=== PATIENT | female | born 1990 | race Caucasian/White ===

== ENCOUNTER → 2019-07-01 11:28 | Outpatient (BNVA) | payer MEDICAID, SELFPAY | PROVIDERS: Family Provider Nurse Practitioner Family; PCP Nurse Practitioner Family; Visit Provider Psychiatry & Neurology Psychiatry | DX: F42.9 Obsessive-compulsive disorder, unspecified (principal) | CPT/HCPCS: 99213 ==

== ENCOUNTER 2019-08-17 08:08 | Emergency (ER) | payer SELFPAY ==
--- NOTE | 2019-08-17 08:19 | ED_ITS ---
HPI - Nausea/Vomiting/Diarrhea General: Chief complaint: Headache Stated complaint: N/V , H/A Time Seen by Provider: 08/17/19 08:10 Source: patient and family Mode of arrival: ambulatory Limitations: no limitations History of Present Illness: HPI Narrative: Patient is a 29-year-old female who presents to ED today along with her mother for complaints of abdominal pain, nausea, vomiting that began this morning. Patient has a longstanding history of cyclic vomiting syndrome with questionable hyperemesis cannabis syndrome. Mother is convinced that her symptoms were due to stress and anxiety related with a bad relationship. She states the relationship ended and patient seemed to have a few months of relief. When asked about current cannabis use patient tells me she is not using enough but failed to ever give me a definitive answer on her usage. Patient has not been running fevers. She has not had diarrhea. MD elicited complaint: nausea, vomiting and abdominal pain Pertinent past history: cyclical vomiting Onset (ago): hour(s) Associated nausea: Yes Associated abdominal pain: Yes Location of pain: Diffuse Radiation: diffuse Pain consistency: constant Quality: cramping Exacerbating factors: eating and vomiting Relieving factors: none Context: marijuana use Associated symtoms: Reports nausea; Denies chest pain, dysuria, fatigue, headache(s), palpitations or syncope Review of Systems Const: Denies: fever, chills, body aches, change in appetite, change in weight or fatigue ENMT: Denies: throat pain, enlarged tonsils or painful swallowing Card: Denies: chest pain, palpitations, irregular heart rhythm, edema, lightheadedness, syncope or pre-syncope Resp: Denies: shortness of breath, productive cough, coughing up blood or chest congestion GI: Reports: abdominal pain, nausea and vomiting; Denies: vomiting blood, diarrhea, constipation, change in bowel habits, painful bowel movements, change in stool character, blood in stool, black tarry stool, white/light colored stool or fatty stool : Denies: flank pain, difficulty urinating, painful urination, urinary frequency, urinary urgency or urinary hesitancy Musc: Denies: neck pain or back pain Skin/Breast: Denies: rash Neuro: Denies: headache, numbness in extremities, weakness in extremities or changes in sensation PFS ED PFSH: Social History (Updated 07/01/19 @ 11:42 by ROMI Ferreira Smoking and tobacco status: former smoker Quit status (tobacco): not considering quitting Second hand smoke exposure: No Smoking risk assessment/counseling performed?: No Physical Exam Const: COMMON NORMALS: average body habitus, oriented x3 and alert GENERAL APPEARANCE: appears older than stated age OTHER: appears in pain, dry heaving HENMT: COMMON NORMALS: normocephalic and head/scalp atraumatic HEAD & SCALP: normocephalic and atraumatic Neck/C-Spine: COMMON NORMALS: full ROM, no lymphadenopathy and no meningeal signs Resp: COMMON NORMALS: normal respiratory effort and clear to auscultation bilaterally AUSCULTATION: clear to auscultation bilaterally Cardio: COMMON NORMALS: regular rate and regular rhythm RATE: regular rate RHYTHM: regular rhythm GI: COMMON NORMALS: normal to inspection, nondistended, normoactive bowel sounds, no hepatosplenomegaly and no masses PALPATION: Yes tender (diffusely) and Yes no hepatosplenomegaly : COMMON NORMALS: Yes no CVA tenderness BLADDER/KIDNEY EXAM: Yes no CVA tenderness Back/Pelvis: COMMON NORMALS: no CVA tenderness Extremity: COMMON NORMALS: normal to inspection Neuro: COMMON NORMALS: oriented x3 SENSORIUM/ORIENTATION: Yes alert ME NINGEAL SIGNS: Yes no meningeal signs Skin: COMMON NORMALS: no rashes or lesions noted GENERAL SKIN EXAM: no rashes or lesions noted Course Vital Signs: Vital signs: Vital Signs Temperature 97.6 F 08/17/19 08:22 Pulse Rate 54 L 08/17/19 08:22 Respiratory Rate 16 08/17/19 08:22 Blood Pressure 140/87 08/17/19 08:22 Pulse Oximetry 97 08/17/19 08:22 MDM - Nausea/Vomiting/Diarrhea MDM Narrative: Medical decision making narrative: pt feels better and states she feels comfortable going home at this time; work up here is benign; there is no need for emergent imaging today and she has had countless previous identical episodes and imaging would not likely change any form of management. Lab Data: Labs: Lab Results 08/17/19 08/17/19 08/17/19 Range/Units 08:50 08:50 08:50 WBC 12.2 H (4.0-10.0) 10^3/ uL RBC 4.64 (4.1-5.3) 10^6/u L Hgb 13.2 (11.5-15.3) g/dL Hct 41.0 (37.0-47.0) % MCV 88.4 (81-99) fL MCH 28.4 (28.0-34.0) pg MCHC 32.2 (30.0-36.0) g/dL RDW 13.0 (12.1-15.1) % Plt Count 291 (130-400) 10^3/c mm MPV 10.0 (7.4-10.4) fL Neut % (Auto) 78.1 % Lymph % (Auto) 16.0 % [place] % (Auto) 4.6 % Eos % (Auto) 0.5 % Baso % (Auto) 0.3 % Neut # (Auto) 9.5 H (1.8-7.7) 10^3/u L Lymph # (Auto) 2.0 (0.8-4.8) 10^3/u L [place] # (Auto) 0.6 (0.2-0.9) 10^3/u L Eos # (Auto) 0.1 (0.0-0.8) 10^3/u L Baso # (Auto) 0.0 (0.0-0.1) 10^3/u L Nucleated RBC % (a uto) 0 % Nucleated RBCs # 0.0 /100WBC Sodium 138 (136-145) mmol/L Potassium 3.2 L (3.5-5.1) mmol/L Chloride 104 (98-107) mmol/L Carbon Dioxide 20 L (22-29) mmol/L Anion Gap 17.2 (5-19) BUN 13 (6-20) mg/dL Creatinine 0.5 (0.5-0.9) mg/dL GFR Calculation 144.9 H (90-130) mL/min Glucose 126 H (65-115) mg/dL Calcium 9.5 (8.5-10.5) mg/dL Total Bilirubin 0.3 (0.15-1.2) mg/dL AST 15 (0-32) U/L ALT 14 (0-33) U/L Alkaline Phosphata se 75 (35-105) IU/L Total Protein 7.6 (6.6-8.7) g/dL Albumin 4.4 (3.5-5.2) g/dL Globulin 3.2 (1.3-4.6) g/dL Lipase 15 (13-60) U/L HCG, Qual Negative (Negative) Urine Color (Yellow) Urine Appearance (CLEAR) Urine pH (5-7) Ur Specific Gravit y (1.005-1.030) Urine Protein (Negative) Urine Glucose (UA) (Normal) Urine Ketones (Negative) Urine Blood (Negative) Urine Nitrate (Negative) Urine Bilirubin (NEGATIVE) Urine Urobilinogen (Negative) mg/dL Ur Leukocyte Vera ase (Negative) Urine RBC (0-2) /hpf Urine WBC (0-5) /hpf Ur Squamous Epith Cells (0-5) Urine Bacteria (NONE) Urine Mucus Urine Opiates Scre en (Negative) ng/mL Ur Barbiturates Sc reen (Negative) ng/mL Ur Phencyclidine S crn (Negative) ng/mL Ur Amphetamines Sc reen (Negative) ng/mL U Benzodiazepines Scrn (Negative) ng/mL Urine Cocaine Scre en (Negative) ng/mL U Marijuana (THC) Screen (Negative) ng/mL 08/17/19 08/17/19 Range/Units 09:40 09:40 WBC (4.0-10.0) 10^3/ uL RBC (4.1-5.3) 10^6/u L Hgb (11.5-15.3) g/dL Hct (37.0-47.0) % MCV (81-99) fL MCH (28.0-34.0) pg MCHC (30.0-36.0) g/dL RDW (12.1-15.1) % Plt Count (130-400) 10^3/c mm MPV (7.4-10.4) fL Neut % (Auto) % Lymph % (Auto) % [place] % (Auto) % Eos % (Auto) % Baso % (Auto) % Neut # (Auto) (1.8-7.7) 10^3/u L Lymph # (Auto) (0.8-4.8) 10^3/u L [place] # (Auto) (0.2-0.9) 10^3/u L Eos # (Auto) (0.0-0.8) 10^3/u L Baso # (Auto) (0.0-0.1) 10^3/u L Nucleated RBC % (a uto) % Nucleated RBCs # /100WBC Sodium (136-145) mmol/L Potassium (3.5-5.1) mmol/L Chloride (98-107) mmol/L Carbon Dioxide (22-29) mmol/L Anion Gap (5-19) BUN (6-20) mg/dL Creatinine (0.5-0.9) mg/dL GFR Calculation (90-130) mL/min Glucose (65-115) mg/dL Calcium (8.5-10.5) mg/dL Total Bilirubin (0.15-1.2) mg/dL AST (0-32) U/L ALT (0-33) U/L Alkaline Phosphata se (35-105) IU/L Total Protein (6.6-8.7) g/dL Albumin (3.5-5.2) g/dL Globulin (1.3-4.6) g/dL Lipase (13-60) U/L HCG, Qual (Negative) Urine Color Yellow (Yellow) Urine Appearance Clear (CLEAR) Urine pH 5.0 (5-7) Ur Specific Gravit y 1.025 (1.005-1.030) Urine Protein Trace (Negative) Urine Glucose (UA) Norm (Normal) Urine Ketones 1+ H (Negative) Urine Blood Neg (Negative) Urine Nitrate Negative (Negative) Urine Bilirubin 1+ H (NEGATIVE) Urine Urobilinogen 1 H (Negative) mg/dL Ur Leukocyte Vera ase Negative (Negative) Urine RBC None (0-2) /hpf Urine WBC 0-4 H (0-5) /hpf Ur Squamous Epith Cells 0-4 H (0-5) Urine Bacteria 2+ H (NONE) Urine Mucus 2+ Urine Opiates Scre en Negative (Negative) ng/mL Ur Barbiturates Sc reen Negative (Negative) ng/mL Ur Phencyclidine S crn Negative (Negative) ng/mL Ur Amphetamines Sc reen Negative (Negative) ng/mL U Benzodiazepines Scrn Negative (Negative) ng/mL Urine Cocaine Scre en Negative (Negative) ng/mL U Marijuana (THC) Screen Positive H (Negative) ng/mL Discharge Plan Discharge Patient Disposition: Home, Self-Care Clinical Impression: Cyclic vomiting syndrome Condition: Stable Prescriptions: New Zofran 4 mg tablet 4 mg PO Q6H PRN (Reason: nausea and vomiting) Qty: 14 RF: 0 No Action potassium chloride 10 mEq capsule, extended release 10 meq PO EVERY OTHER DAY RF: 0 propranolol 10 mg tablet 10 mg PO BID PRN (Reason: unknown) RF: 0 pantoprazole [Protonix] 40 mg tablet,delayed release (DR/EC) 40 mg PO QAM RF: 0 venlafaxine [Effexor XR] 75 mg capsule,extended release 24hr 75 mg PO QAM Qty: 30 RF: 2 Multiple Vitamins Tablet 1 tab PO DAILY RF: 0 mirtazapine 15 mg tablet 15 mg PO BEDTIME RF: 0 Discharge Orders: Discharge Order (Routine); Ordered 08/17/19 Ordered By: Enma Galdamez Referrals: Kevin Denise, WINDOW DRAPER [Primary Care Provider] - Discharge Diet: Advance as tolerated Discharge Activity: Increase activity as tolerated Coding Level of Care Code ED Splicer Operator for Chg Fwd Exam Comprehensive
[2019-08-17 08:22] VITALS: BP 140/87; PULSE 54; RESP 16; TEMP 36.4; O2SAT 97; BMI 18.8
[2019-08-17] MEDS: LORazepam 2 mg/mL INJ 1 mL 1 MG IVP ×2 (08:52→11:44)
[2019-08-17] MEDS: promethazine 25 mg/mL SDV 1 mL IV (08:54)
[2019-08-17] MEDS: sodium chloride 0.9% 1,000 ML 999 ML IV (08:56)
[2019-08-17 09:06] LABS: Basophils % 0.3 %; Eosinophils # 0.1 10^3/uL (0.0-0.8); Eosinophils % 0.5 %; Hemoglobin 13.2 g/dL (11.5-15.3); Mean Corpuscular HGB Conc 32.2 g/dL (30.0-36.0); Mean Corpuscular Hemoglobin 28.4 pg (28.0-34.0); Mean Corpuscular Volume 88.4 fL (81-99); Monocytes # 0.6 10^3/uL (0.2-0.9); Monocytes % 4.6 %; Neutrophils # 9.5 10^3/uL (1.8-7.7); Neutrophils % 78.1 %; Nucleated Red Blood Cells % 0 %; Platelet Count 291 10^3/cmm (130-400); Red Blood Count 4.64 10^6/uL (4.1-5.3); White Blood Count 12.2 10^3/uL (4.0-10.0)
[2019-08-17 09:10] LABS: HCG, Serum Qual Negative (Negative)
[2019-08-17 09:15] LABS: Alanine Aminotransferase 14 U/L (0-33); Albumin Level 4.4 g/dL (3.5-5.2); Alkaline Phosphatase 75 IU/L (35-105); Anion Gap 17.2 (5-19); Aspartate Amino Transferase 15 U/L (0-32); Blood Urea Nitrogen 13 mg/dL (6-20); Calcium 9.5 mg/dL (8.5-10.5); Carbon Dioxide 20 mmol/L (22-29); Chloride 104 mmol/L (98-107); Creatinine Clr Calc Pharmacy 152.5411; Globulin 3.2 g/dL (1.3-4.6); Glomerular Filtration Rate 144.9 mL/min (90-130); Glucose 126 mg/dL (65-115); Lipase 15 U/L (13-60); Potassium 3.2 mmol/L (3.5-5.1); Sodium 138 mmol/L (136-145); Total Bilirubin 0.3 mg/dL (0.15-1.2); Total Protein 7.6 g/dL (6.6-8.7)
[2019-08-17 09:59] LABS: Blood Urine Neg (Negative); Glucose Urine UA Norm (Normal); Ketones Urine 1+ (Negative); Nitrate Urine Negative (Negative); Protein Urine Trace (Negative); Specific Gravity, Urine 1.025 (1.005-1.030); Urine Appearance Clear (CLEAR); Urine Color Yellow (Yellow)
[2019-08-17 10:00] LABS: Add Urine Microscopic? YES; Bilirubin Urine 1+ (NEGATIVE); Leukocyte Esterase Urine Negative (Negative); Urobilinogen Urine 1 mg/dL (Negative)
[2019-08-17] MEDS: valproic acid inj 500 MG in sodium chloride 0.9% 50 ML 55 MG IV (10:02)
[2019-08-17 10:09] LABS: Add Urine Culture? No; Bacteria Urine 2+; Mucus Urine 2+; Squamous Epithelial Cell Urine 0-4 (0-5); WBC Urine 0-4 /hpf (0-5)
[2019-08-17 10:48] LABS: Amphetamines Screen Urine Negative (Negative); Barbiturates Screen Urine Negative (Negative); Benzodiazepines Screen Urine Negative (Negative); Cocaine Screen Urine Negative (Negative); Opiate Screen Urine Negative (Negative); PCP Screen Urine Negative (Negative); THC Screen Urine Positive (Negative)
[2019-08-17] MEDS: ondansetron 2 mg/ML SDV 2 mL 4 MG IVP (11:17)
[2019-08-17 12:46] VITALS: BP 107/65; PULSE 51; RESP 16; O2SAT 100
== END 2019-08-17 12:50 | disposition home or self-care (01) ==
PROVIDERS: Emergency Provider Physician Assistant; Family Provider Nurse Practitioner Family; PCP Nurse Practitioner Family
DX: R11.15 Cyclical vomiting syndrome unrelated to migraine (principal); Z87.891 Personal history of nicotine dependence
CPT/HCPCS: 36415; 80053; 80307; 81001; 83690; 84703; 85025; 96365; 96366; 96374; 96375; 96376; 99283; J2060; J2405; J2550; J7030

== ENCOUNTER → 2019-09-23 09:21 | Outpatient (BNVA) | payer MEDICAID, SELFPAY | PROVIDERS: Family Provider Nurse Practitioner Family; PCP Nurse Practitioner Family; Visit Provider Psychiatry & Neurology Psychiatry | DX: F41.1 Generalized anxiety disorder (principal); F42.9 Obsessive-compulsive disorder, unspecified | CPT/HCPCS: 99213 ==

== ENCOUNTER → 2019-11-21 07:53 | Outpatient (BNVA) | payer MEDICAID, SELFPAY | PROVIDERS: Family Provider Nurse Practitioner Family; PCP Nurse Practitioner Family; Visit Provider Psychiatry & Neurology Psychiatry | DX: F42.9 Obsessive-compulsive disorder, unspecified (principal); F41.1 Generalized anxiety disorder | CPT/HCPCS: 99213 ==

== ENCOUNTER 2020-03-27 10:25 | Emergency (ER) | payer SELFPAY ==
[2020-03-27 10:35] VITALS: BP 132/76; PULSE 62; RESP 16; TEMP 36.6; O2SAT 96; BMI 18.8
--- NOTE | 2020-03-27 11:10 | W.ED.HA ---
HPI - Headache General: Chief Complaint: Headache Stated Complaint: MIGRAINE Time Seen by Provider: 03/27/20 10:40 History of Present Illness: HPI Narrative: This patient is a 29-year-old female who comes into the ER today with migraine headache. It started over the weekend. Her mother says that she has tried to control it at home with nonpharmacological treatments. These include putting ice on her head and warmth on her feet. The patient has taken sumatriptan injections in the past but is out of them currently. She had some vomiting over the weekend. She has not vomited today. She is try to go to work the last 2 days but had to come home because of the migraine. She has a history of migraines and this is not different than normal. History is from the mother. Patient does not want to talk. She is lying on the bed with her eyes covered. When I did try to get her to answer questions she became very agitated and anxious. MD elicited complaint: migraine Onset (ago): day(s) (4) Onset description: gradually Associated symptoms: Reports nausea, photophobia and vomiting Treatments prior to arrival: none Review of Systems GI: Reports: nausea and vomiting [facility] ED PFSH: Family History Other Cancer Diabetes Heart disease Social History Smoking and tobacco status: current every day smoker e-cigarettes E-Cigarette Details: vaporizer device E-cig/vape details: ? Quit status (tobacco): not considering quitting Second hand smoke exposure: No Smoking risk assessment/counseling performed?: No Alcohol intake: never Marital status: Single Physical Exam Const: COMMON NORMALS: patient oriented x3, no limitations and alert GENERAL APPEARANCE: cooperative and comfortable HENMT: HEAD & SCALP: normal to inspection FACE & SINUS: normal facial exam Eye: GENERAL EYE: appearance normal, both eyes and all related structures DIRECT OPHTHALMOSCOPY: Yes photophobia Neck/C-Spine: COMMON NORMALS: supple, no meningeal signs and no JVD Chest: COMMONS NORMALS: normal inspection of the chest Resp: COMMON NORMALS: normal respiratory effort, No use of accessory muscles and clear to auscultation bilaterally AUSCULTATION: clear to auscultation bilaterally Cardio: COMMON NORMALS: no JVD, regular rate, regular rhythm and No murmurs present (Cardio) RATE: regular rate RHYTHM: regular rhythm GI: COMMON NORMALS: Normal to inspection, nondistended, normoactive bowel sounds present, Soft to palpation and non-tender INSPECTION: Yes normal to inspection AUSCULTATION: Yes normoactive bowel sounds PALPATION: Yes Soft to palpation Back/Pelvis: COMMON NORMALS: thoracic and lumbar spine normal to inspection Extremity: COMMON NORMALS: normal to inspection Neuro: COMMON NORMALS: patient oriented x3, moves all extremities, no focal motor deficits and no sensory deficits noted SENSORIUM/ORIENTATION: Yes alert MENINGEAL SIGNS: Yes no meningeal signs Psych: COMMON NORMALS: mental status grossly normal, cooperative and normal affect Skin: COMMON NORMALS: no rashes or lesions noted and turgor normal GENERAL SKIN EXAM: no rashes or lesions noted and turgor normal Course ED course: Headache improved with multiple rounds of pain medication and fluids. I think there is quite a bit of anxiety involved in this symptomatology as well. Outpatient follow-up recommended. Vital Signs: Vital signs: Vital Signs Temperature 97.9 F 03/27/20 10:35 Pulse Rate 64 03/27/20 14:58 Respiratory Rate 16 03/27/20 10:35 Blood Pressure 132/76 03/27/20 10:35 Pulse Oximetry 100 03/27/20 14:58 MDM - Headache Lab Data: Labs: Lab Results 03/27/20 Range/Units 12:05 HCG, Qual Negative (Negative) Discharge Plan Discharge Patient Disposition: Home Clinical Impression: Generalized anxiety disorder Migraine without aura Qualifiers: Status migrainosus presence: without status migrainosus Intractability: not intractable Qualified Code(s): G43.009 - Migraine without aura, not intractable, without status migrainosus Nausea & vomiting Qualifiers: Vomiting type: unspecified Vomiting Intractability: non-intractable Qualified Code(s): R11.2 - Nausea with vomiting, unspecified Condition: Stable Prescriptions: No Action potassium chloride 10 mEq capsule, extended release 10 meq PO EVERY OTHER DAY RF: 0 duloxetine 60 mg capsule,delayed release(DR/EC) 60 mg PO DAILY Qty: 30 RF: 2 mirtazapine 15 mg tablet 15 mg PO BEDTIME Qty: 30 RF: 2 venlafaxine [Effexor XR] 37.5 mg capsule,extended release 24hr 37.5 mg PO DAILY Qty: 30 RF: 2 sumatriptan succinate 6 mg/0.5 mL syringe 6 mg SUBCUT ONCE PRN (Reason: migraine headache) Qty: 6 RF: 0 testosterone cypionate [Depo-Testosterone] 100 mg/mL oil IM .Q 3 months RF: 0 propranolol 10 mg tablet 10 mg PO BID PRN (Reason: unknown) Qty: 60 RF: 3 pantoprazole [Protonix] 40 mg tablet,delayed release (DR/EC) 40 mg PO QAM Qty: 30 RF: 3 Multiple Vitamins Tablet 1 tab PO DAILY RF: 0 Zofran 4 mg tablet 4 mg PO Q6H PRN (Reason: nausea and vomiting) Qty: 14 RF: 0 Discharge Orders: Discharge Order (Routine); Ordered 03/27/20 Ordered By: Katerine Robin Referrals: BRYON Denise, RECORDS TECHNICIAN [Primary Care Provider] - Discharge Diet: Advance as tolerated Discharge Activity: Resume usual activity Patient Instructions: Headache - Migraine (Adult) Activity Restrictions/Additional Instructions: Rest, fill the prescription for sumatriptan and. Return to the ED if new or worse symptoms. 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
[2020-03-27] MEDS: ondansetron 2 mg/ML SDV 2 mL 4 MG IVP (11:26)
[2020-03-27] MEDS: promethazine 25 mg/mL SDV 1 mL IM (11:26)
[2020-03-27] MEDS: ketorolac 30 mg/mL INJ 15 MG IVP (11:27)
[2020-03-27] MEDS: LORazepam 2 mg/mL INJ 1 mL 0.5 MG IVP (11:29)
[2020-03-27] MEDS: diphenhydrAMINE 50 mg/mL SDV 1mL IVP (11:30)
[2020-03-27] MEDS: sodium chloride 0.9% 1,000 ML 999 ML IV (11:31)
[2020-03-27 12:28] LABS: HCG, Serum Qual Negative (Negative)
[2020-03-27] MEDS: dexamethasone 10 mg/mL INJ IVP (13:42)
[2020-03-27] MEDS: magnesium sulfate premix 2 GM/50 ML PIGGYBACK IV (13:42)
[2020-03-27] MEDS: LORazepam 2 mg/mL INJ 1 mL 1 MG IVP (14:39)
[2020-03-27 14:58] VITALS: PULSE 64; O2SAT 100
== END 2020-03-27 14:59 | disposition home or self-care (01) ==
PROVIDERS: Emergency Provider Emergency Medicine; PCP Nurse Practitioner Family
DX: G43.009 Migraine without aura, not intractable, without status migrainosus (principal); F41.1 Generalized anxiety disorder; R11.2 Nausea with vomiting, unspecified; F17.290 Nicotine dependence, other tobacco product, uncomplicated
CPT/HCPCS: 12345; 84703; 96365; 96372; 96375; 99282; 99283; J1100; J1200; J1885; J2060; J2405; J2550; J3475; J7030

== ENCOUNTER → 2020-05-03 08:29 | Outpatient (BNVA) | payer MEDICAID, SELFPAY | PROVIDERS: PCP Nurse Practitioner Family; Visit Provider Psychiatry & Neurology Psychiatry | DX: F42.9 Obsessive-compulsive disorder, unspecified (principal); F41.1 Generalized anxiety disorder | CPT/HCPCS: 99213 ==

== ENCOUNTER 2020-06-01 17:09 | Emergency (ER) | payer SELFPAY ==
[2020-06-01 17:24] VITALS: BP 104/61; PULSE 93; RESP 18; TEMP 36.6; O2SAT 93; BMI 19.5
--- NOTE | 2020-06-01 17:43 | ED_ITS ---
HPI - Headache General: Chief Complaint: Headache Stated Complaint: MIGRAINE Time Seen by Provider: 06/01/20 17:32 Source: patient and family (mother) Mode of arrival: ambulatory Limitations: no limitations History of Present Illness: HPI Narrative: 29 year old female presents to the emergency department with onset migraine headache this morning. She reports injection of sumatriptan x2 today. Not effective, she also states promethazine suppositories, not effective, has continued to experience nausea vomiting which is normal with migraine headache she experiences. She states does not know triggers that cause onset of migraines. Mother is at bedside, she denies altered mental status or fever/chills. MD elicited complaint: headache and migraine Pertinent past history: migraines Onset (ago): day(s) (1) Time: 07:00 Location: parietal and band-like Severity: moderate Quality & Timing: throbbing, squeezing, constant and similar to previous headaches Exacerbating factors: exertion, sitting/standing, light and noise Relieving factors: rest, dark room, sleep and ice packs Context: other Associated symptoms: Reports nausea, photophobia, sound sensitivity and vomiting; Deny confusion, cough, diaphoresis, eye pain, eye redness, fever(s), lightheadedness, loss of vision, malaise, neck stiffness, numbness, rash, seizures, short of breath, syncope or weakness Treatments prior to arrival: antiemetic and migraine medication Review of Systems General: Reports: 10 or more systems reviewed and unremarkable except in HPI and below Const: Denies: fever(s), body aches, fatigue, malaise or diaphoresis Eyes: Denies: change in vision, blurry vision, eye redness, dry eyes or seeing flashes ENMT: Reports: uvular edema and dry mouth; Denies: throat pain, hoarseness, dental pain, disequilibrium, nasal discharge, nasal congestion, nasal obstruction or post nasal drip Card: Denies: lightheadedness, syncope, dyspnea on exertion, orthopnea or leg pain with exertion Resp: Denies: dyspnea, productive cough, non-productive cough, wheezing or chest congestion GI: Reports: nausea, vomiting and diarrhea; Denies: abdominal pain, hematemesis, constipation, bloating or GI cramping : Reports: vaginal bleeding (current menses); Denies: difficulty voiding, dysuria, urinary urgency or urinary incontinence Musc: Denies: neck pain, back pain, joint pain, joint swelling, joint stiffness or muscle weakness Skin/Breast: Denies: rash, pruritus, erythema, changing lesions or changes in skin color Neuro: Denies: numbness in extremities, weakness in extremities, sensory changes, difficulty walking, dizziness, confusion, Slurred speech present or difficulty communicating thoughts Psych: Reports: anxiety, depression and change in appetite (due to nausea); Denies: memory loss, difficulty concentrating, visual hallucinations or auditory hallucinations Ibmal/Lymph: Denies: easy bruising PFSH ED PFSH: Family History Other Cancer Diabetes Heart disease Social History Smoking and tobacco status: current every day smoker e-cigarettes E-Cigarette Details: vaporizer device E-cig/vape details: ? Quit status (tobacco): not considering quitting Second hand smoke exposure: No Smoking risk assessment/counseling performed?: No Alcohol intake: never Marital status: Single Physical Exam Const: COMMON NORMALS: patient oriented x3, healthy appearing, alert and well nourished EXAM LIMITATIONS: no altered mental status, no behavioral limitations and no physical limitations GENERAL APPEARANCE: cooperative, comfortable, well kempt, well developed, anxious and well hydrated; not lethargic NUTRITIONAL APPEARANCE: thin ORIENTATION/CONSCIOUSNESS: Yes awake, Yes oriented to person, Yes oriented to place and Yes oriented to time; not confused and not lethargic HENMT: COMMON NORMALS: normocephalic, atraumatic, EAC's normal, Normal external nose present, Normal nasal mucous membranes and turbinates present and oropharynx normal HEAD & SCALP: normal to inspection, normocephalic and atraumatic FACE & SINUS: normal facial exam and face symmetric; no ecchymosis, no erythema and no edema NOSE: Normal external nose present and Normal nasal mucous membranes and turbinates present EXTERNAL AUDITORY CANAL: EAC's normal MOUTH: lip normal, tongue normal and Abnormal oral and palatal mucosa present (dryness present) THROAT: posterior oropharynx normal and uvular edema Eye: COMMON NORMALS: Equal, round and reactive pupils present and EOMs intact bilaterally GENERAL EYE: appearance normal, both eyes and all related structures PUPIL: Yes Equal, round and reactive pupils present DIRECT OPHTHALMOSCOPY: Yes photophobia Neck/C-Spine: COMMON NORMALS: full ROM, no lymphadenopathy, supple and no meningeal signs GENERAL: Yes normal visual inspection and Yes trachea midline CERVICAL SPINE: Yes cervical ROM normal, No pain with cervical ROM, No Cervical spine tenderness and No Paracervical muscle tenderness Lymph: LYMPHATIC: no lymphadenopathy noted Chest: COMMONS NORMALS: normal inspection of the chest and normal palpation of entire chest wall Resp: COMMON NORMALS: normal respiratory effort, No retractions, No use of accessory muscles and clear to auscultation bilaterally EFFORT & INSPECTION: Yes able to speak in complete sentences AUSCULTATION: clear to auscultation bilaterally and lung sounds not diminished Cardio: COMMON NORMALS: regular rate, regular rhythm, S1 normal heart sound present, S2 normal heart sound present and Peripheral pulses 2+ throughout PALPATION: normal PMI RATE: regular rate RHYTHM: regular rhythm HEART SOUNDS: S1 normal heart sound present and S2 normal heart sound present PERIPHERAL PULSES: Peripheral pulses 2+ throughout GI: COMMON NORMALS: Normal to inspection, nondistended, normoactive bowel sounds present, Soft to palpation and non-tender; negative for No hepatosplenomegaly present INSPECTION: Yes normal to inspection PALPATION: Yes Soft to palpation, No Firmness to palpation present (GI), No Tenderness to palpation present (GI) and No No hepatosplenomegaly present : COMMON NORMALS: Yes no CVA tenderness BLADDER/KIDNEY EXAM: Yes no CVA tenderness Back/Pelvis: COMMON NORMALS: no CVA tenderness and thoracic and lumbar spine normal to inspection Extremity: COMMON NORMALS: normal to inspection and capillary refill normal Neuro: ISAAC COMA SCALE: document GCS findings [place] coma scale eye opening: Spontaneous Isaac coma scale verbal response: Orientated Isaac coma scale motor response: Obey commands [place] coma scale total score: 15 COMMON NORMALS: patient oriented x3 and no focal motor deficits SENSORIUM/ORIENTATION: Yes alert, Yes oriented to person, Yes oriented to place, Yes oriented to time and No lethargic MENINGEAL SIGNS: Yes no meningeal signs SPEECH: speech normal MOTOR EXAM: 5/5 motor strength present throughout Psych: COMMON NORMALS: mental status grossly normal, Normal thought process present and cooperative APPEARANCE: Yes well kempt ACTIVITY/MOTOR BEHAVIOR: Yes appropriate eye contact THOUGHT PROCESS: Normal thought process present Skin: COMMON NORMALS: no rashes or lesions noted and turgor normal GENERAL SKIN EXAM: no rashes or lesions noted and turgor normal Course ED course: 29-year-old female patient presents to the emergency department with uncontrolled migraine headache. Migraine headache she is experiencing today is similar to that experienced in the past. [place] SAH rule score 0/0 - ruled out. Patient continues to experience emesis/nausea. Is requesting Ativan as this is the only thing that helps once her migraines get this bad. Spoke with Dr. Rod, order for 0.5 mg Ativan provided. LARRY improved and vomiting resolved. requests to go home, mother at bedside, advised to return to the ED if LARRY worsens or vomiting continues despite use of Zofran, Promethazine or if fever or other concerning symptoms occur. Vital Signs: Vital signs: Vital Signs Temperature 97.9 F 06/01/20 17:24 Pulse Rate 65 06/01/20 21:00 Respiratory Rate 18 06/01/20 21:00 Blood Pressure 124/74 06/01/20 21:00 Pulse Oximetry 98 06/01/20 21:00 Discharge Plan Discharge Patient Disposition: Home Clinical Impression: Migraine headache Qualifiers: Migraine type: without aura Status migrainosus presence: with status migrainosus Intractability: intractable Qualified Code(s): G43.011 - Migraine without aura, intractable, with status migrainosus Condition: Stable Prescriptions: No Action sumatriptan succinate 6 mg/0.5 mL syringe 6 mg SUBCUT ONCE PRN (Reason: migraine headache) Qty: 6 RF: 0 propranolol 10 mg tablet 10 mg PO BID@0700,1999 PRN (Reason: unknown) RF: 0 mirtazapine 15 mg tablet 15 mg PO BEDTIME@1999 RF: 0 duloxetine 60 mg capsule,delayed release(DR/EC) 60 mg PO DAILY@1999 RF: 0 Discharge Orders: Discharge ED (Routine); Ordered 06/01/20 Ordered By: Padmini Zavala Referrals: BRYON Denise, [employer] REFRACTORY TILE REPAIRER [Primary Care Provider] - Discharge Diet: Advance as tolerated and Clear Liquid Discharge Activity: Limit activity as instructed Patient Instructions: Headache - Migraine (Adult), Acute Nausea and Vomiting (ED) Activity Restrictions/Additional Instructions: rest at home today and tomorrow Return to the ED for the worst LARRY of your life or if nausea and vomiting return with use of Zofran and Phenergan clear liquid diet for 24 hours, then advance to bland diet, avoid greasy, fried, spicy foods Stand Alone Forms: Work/School Release Coding Level of Care Code ED 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
[2020-06-01] MEDS: diphenhydrAMINE 50 mg/mL SDV 1mL 25 MG IVP (18:48)
[2020-06-01] MEDS: ondansetron 2 mg/ML SDV 2 mL 4 MG IVP (18:48)
[2020-06-01] MEDS: ketorolac 30 mg/mL INJ IVP (18:49)
[2020-06-01] MEDS: sodium chloride 0.9% 500 ML 999 ML IV ×2 (18:49→19:27)
[2020-06-01] MEDS: dexamethasone 4 mg/mL INJ 10 MG IVP (18:49)
[2020-06-01] MEDS: promethazine 25 mg/mL SDV 1 mL IM (19:27)
[2020-06-01] MEDS: LORazepam 2 mg/mL INJ 1 mL 0.5 MG IVP ×2 (19:27→20:27)
[2020-06-01 21:00] VITALS: BP 124/74; PULSE 65; RESP 18; O2SAT 98
== END 2020-06-01 21:31 | disposition home or self-care (01) ==
PROVIDERS: Emergency Provider Nurse Practitioner Family; PCP Nurse Practitioner Family
DX: G43.011 Migraine without aura, intractable, with status migrainosus (principal); F17.290 Nicotine dependence, other tobacco product, uncomplicated
CPT/HCPCS: 12345; 96372; 96374; 96375; 96376; 99282; 99283; J1100; J1200; J1885; J2060; J2405; J2550; J7040

== ENCOUNTER 2020-06-05 00:18 | Emergency (ER) | payer SELFPAY ==
[2020-06-05 00:23] VITALS: BP 120/70; PULSE 69; RESP 16; TEMP 36.9; O2SAT 97; BMI 18.8
[2020-06-05] MEDS: promethazine 25 mg/mL SDV 1 mL IM (01:22)
[2020-06-05] MEDS: sodium chloride 0.9% 500 ML 999 ML IV (01:22)
[2020-06-05 01:27] VITALS: BP 124/77; O2SAT 97
--- NOTE | 2020-06-05 01:33 | ED_ITS ---
HPI - Headache General: Chief Complaint: Headache Stated Complaint: HEAD PAIN Time Seen by Provider: 06/05/20 00:30 Source: patient and EMS Mode of arrival: EMS Limitations: no limitations History of Present Illness: HPI Narrative: 29-year-old female patient arrives by EMS with acute onset migraine headache with diarrhea. She reports onset at 9:30 PM tonight. She reports took Imitrex for migraine, did not help. Recently seen for similar symptoms. She denies triggers. Reports stomach upset occurs with migraine headache. Diarrhea is sometimes present with migraine. EMS administered 1 mg of Ativan prior to arrival. She continues to experience vomiting in the ED. MD elicited complaint: headache and migraine Time: 09:30 Onset description: suddenly Location: frontal and parietal Severity: moderate Quality & Timing: aching, throbbing, squeezing, constant and similar to previous headaches Exacerbating factors: exertion, movement of head/neck, light and noise Relieving factors: rest, dark room and sleep Context: occurred at rest Associated symptoms: Reports nausea, photophobia, sound sensitivity and vomiting; Deny confusion, diaphoresis, fever(s), lightheadedness, loss of vision, malaise, neck stiffness, paresthesias, rash, seizures, short of breath, syncope or weakness Treatments prior to arrival: prescription analgesic Review of Systems General: Reports: 10 or more systems reviewed and unremarkable except in HPI and below Const: Reports: fatigue; Denies: fever(s), chills, malaise or diaphoresis Eyes: Reports: photophobia; Denies: blurry vision, eye discomfort, eye redness or dry eyes ENMT: Denies: throat pain, dental pain, dry mouth, ear or mastoid pain, disequilibrium, nasal discharge, nasal congestion, nasal obstruction or post nasal drip Card: Denies: palpitations, irregular heart rhythm, lightheadedness, syncope or dyspnea on exertion Resp: Denies: dyspnea, productive cough, non-productive cough or wheezing GI: Reports: abdominal pain, nausea, vomiting, diarrhea and GI cramping; Denies: dysphagia, heartburn or constipation : Denies: difficulty voiding or dysuria Musc: Denies: neck pain, back pain, muscle cramps or muscle weakness Skin/Breast: Denies: rash, erythema, skin tenderness or changes in skin color Neuro: Reports: headache(s) and difficulty walking (due to headache); Denies: numbness in extremities, weakness in extremities, vertigo, confusion, behavioral changes or Slurred speech present Psych: Denies: anxiety or depression Bimal/Lymph: Denies: easy bruising PFSH ED PFSH: Family History Other Cancer Diabetes Heart disease Social History Smoking and tobacco status: current every day smoker e-cigarettes E-Cigarette Details: vaporizer device E-cig/vape details: ? Quit status (tobacco): not considering quitting Second hand smoke exposure: No Smoking risk assessment/counseling performed?: No Alcohol intake: never Marital status: Single Physical Exam Const: COMMON NORMALS: no acute distress, average body habitus, patient oriented x3 and alert EXAM LIMITATIONS: no altered mental status and no physical limitations GENERAL APPEARANCE: cooperative, well kempt, in distress (in pain) and well hydrated; not comfortable, not ill appearing and not diaphoretic NUTRITIONAL APPEARANCE: thin ORIENTATION/CONSCIOUSNESS: Yes awake, Yes oriented to person, Yes oriented to place and Yes oriented to time; not confused HENMT: COMMON NORMALS: normocephalic, atraumatic, hearing grossly normal bilaterally, EAC's normal, TM's normal bilaterally, Normal external nose present and moist oral mucous membranes HEAD & SCALP: normal to inspection, normocephalic, atraumatic and scalp tenderness (global) FACE & SINUS: normal facial exam and face symmetric; no sinus tenderness, no abrasion and no edema NOSE: Normal external nose present and Normal nares present EXTERNAL AUDITORY CANAL: EAC's normal TYMPANIC MEMBRANE: TM's normal bilaterally MOUTH: Normal oral and palatal mucosa present, lip normal and tongue normal THROAT: posterior oropharynx normal, tonsils normal and uvula midline Eye: COMMON NORMALS: Equal, round and reactive pupils present and EOMs intact bilaterally GENERAL EYE: appearance normal, both eyes and all related structures ALIGNMENT: Yes alignment normal PUPIL: Yes Equal, round and reactive pupils present DIRECT OPHTHALMOSCOPY: Yes photophobia Neck/C-Spine: COMMON NORMALS: full ROM, no lymphadenopathy and supple GENERAL: Yes normal visual inspection and Yes trachea midline CERVICAL SPINE: Yes cervical ROM normal, No Cervical spine tenderness, No Paracervical muscle tenderness and No Trapezius muscle tenderness Lymph: LYMPHATIC: no lymphadenopathy noted Chest: COMMONS NORMALS: normal inspection of the chest and normal palpation of entire chest wall CHEST: No localized rib tenderness with anteroposterior compression Resp: COMMON NORMALS: normal respiratory effort, No retractions, No use of accessory muscles and clear to auscultation bilaterally EFFORT & INSPECTION: Yes able to speak in complete sentences, No tachypneic, No respiratory distress, No decreased respiratory effort and No pursed lip breathing AUSCULTATION: clear to auscultation bilaterally Cardio: COMMON NORMALS: regular rate, regular rhythm, S1 normal heart sound present, S2 normal heart sound present and Peripheral pulses 2+ throughout RATE: regular rate RHYTHM: regular rhythm HEART SOUNDS: S1 normal heart sound present and S2 normal heart sound present PERIPHERAL PULSES: Peripheral pulses 2+ throughout GI: COMMON NORMALS: Soft to palpation and No hepatosplenomegaly present INSPECTION: Yes normal to inspection, No abdominal wall ecchymosis, No Abdominal wall edema, No abdominal distension, No incision and No scar PALPATION: Yes Soft to palpation, Yes Tenderness to palpation present (GI) Details: other (generalized), Yes No hepatosplenomegaly present, No Hepatosplenomegaly present and No Hernia present : COMMON NORMALS: Yes no CVA tenderness BLADDER/KIDNEY EXAM: Yes no CVA tenderness EXTERNAL FEMALE EXAM: No Hernia present Back/Pelvis: COMMON NORMALS: no CVA tenderness and thoracic and lumbar spine normal to inspection Extremity: COMMON NORMALS: normal to inspection and capillary refill normal Neuro: ISAAC COMA SCALE: document GCS findings Isaac coma scale eye opening: Spontaneous Isaac coma scale verbal response: Orientated [place] coma scale motor response: Obey commands [place] coma scale total score: 15 COMMON NORMALS: patient oriented x3 and no focal motor deficits SENSORIUM/ORIENTATION: Yes alert, Yes oriented to person, Yes oriented to place and Yes oriented to time SPEECH: speech normal Psych: COMMON NORMALS: mental status grossly normal, Normal thought process present, cooperative and speech normal APPEARANCE: Yes grossly normal and Yes well kempt ATTITUDE: Yes calm ACTIVITY/MOTOR BEHAVIOR: Yes appropriate eye contact SPEECH: Yes normal speech THOUGHT PROCESS: Normal thought process present INSIGHT: Good insight present (Psych) JUDGEMENT: Good judgement present (Psych) Skin: COMMON NORMALS: no rashes or lesions noted and turgor normal GENERAL SKIN EXAM: no rashes or lesions noted and turgor normal Course ED course: 29-year-old female patient presents to the emergency department with continued migraine headache, intractable. Started tonight at 9:30 PM. She is administered Ativan, 1 mg during EMS transport, promethazine Toradol and IV Ofirmev administered. Patient was able to rest comfortably, eyes are closed, headache improved. Abdominal pain resolved with promethazine. She has not experienced diarrhea during her stay. Referral sent to Dr. Deleon, neurology due to continued migraine headaches, poorly controlled. Patient verbalized understanding of need for follow-up with neurology. Advised to return to the emergency department if she develops the worst headache of her life or other concerning symptoms. Verbalized understanding. Vital Signs: Vital signs: Vital Signs Temperature 98.4 F 06/05/20 00:23 Pulse Rate 69 06/05/20 00:23 Respiratory Rate 16 06/05/20 00:23 Blood Pressure 124/77 06/05/20 01:27 Pulse Oximetry 97 06/05/20 01:27 MDM - Headache Lab Data: Labs: Lab Results 06/05/20 06/05/20 06/05/20 Range/Units 01:17 01:17 01:17 WBC 10.2 H (4.0-10.0) 10^3/ uL RBC 4.61 (4.1-5.3) 10^6/u L Hgb 13.5 (11.5-15.3) g/dL Hct 40.9 (37.0-47.0) % MCV 88.7 (81-99) fL MCH 29.3 (28.0-34.0) pg MCHC 33.0 (30.0-36.0) g/dL RDW 12.2 (12.1-15.1) % Plt Count 283 (130-400) 10^3/c mm MPV 10.5 H (7.4-10.4) fL Neut % (Auto) 83.2 % Lymph % (Auto) 12.1 % Emmet % (Auto) 4.0 % Eos % (Auto) 0.2 % Baso % (Auto) 0.3 % Neut # (Auto) 8.49 H (1.8-7.7) 10^3/u L Lymph # (Auto) 1.2 (0.8-4.8) 10^3/u L Emmet # (Auto) 0.4 (0.2-0.9) 10^3/u L Eos # (Auto) 0.0 (0.0-0.8) 10^3/u L Baso # (Auto) 0.0 (0.0-0.1) 10^3/u L Nucleated RBC % (a uto) 0 % Nucleated RBCs # 0.0 /100WBC Sodium 138 (136-145) mmol/L Potassium 4.2 (3.5-5.1) mmol/L Chloride 102 (98-107) mmol/L Carbon Dioxide 25 (22-29) mmol/L Anion Gap 15.2 (5-19) BUN 8 (6-20) mg/dL Creatinine 0.5 (0.5-0.9) mg/dL GFR Calculation 144.9 H (90-130) mL/min Glucose 127 H (65-115) mg/dL Calculated Osmolal ity 286 (285-295) mOsm/k g Calcium 9.1 (8.5-10.5) mg/dL Total Bilirubin 0.5 (0.15-1.2) mg/dL AST 24 (0-32) U/L ALT 24 (0-33) U/L Alkaline Phosphata se 86 (35-105) IU/L Total Protein 7.2 (6.6-8.7) g/dL Albumin 4.6 (3.5-5.2) g/dL Globulin 2.6 (1.3-4.6) g/dL Lipase 12 L (13-60) U/L HCG, Qual Negative (Negative) Urine Color (Yellow) Urine Appearance (CLEAR) Urine pH (5-7) Ur Specific Gravit y (1.005-1.030) Urine Protein (Negative) Urine Glucose (UA) (Normal) Urine Ketones (Negative) Urine Blood (Negative) Urine Nitrate (Negative) Urine Bilirubin (Negative) Prot Sulfosalicyli c Acd (Negative) Urine Urobilinogen (Negative) mg/dL Ur Leukocyte Vera ase (Negative) Urine RBC (0-2) /hpf Urine WBC (0-5) /hpf Ur Squamous Epith Cells (0-5) /hpf Amorphous Sediment /hpf Urine Bacteria (NONE) /hpf 12/15/20 Range/Units 02:25 WBC (4.0-10.0) 10^3/ uL RBC (4.1-5.3) 10^6/u L Hgb (11.5-15.3) g/dL Hct (37.0-47.0) % MCV (81-99) fL MCH (28.0-34.0) pg MCHC (30.0-36.0) g/dL RDW (12.1-15.1) % Plt Count (130-400) 10^3/c mm MPV (7.4-10.4) fL Neut % (Auto) % Lymph % (Auto) % Emmet % (Auto) % Eos % (Auto) % Baso % (Auto) % Neut # (Auto) (1.8-7.7) 10^3/u L Lymph # (Auto) (0.8-4.8) 10^3/u L Emmet # (Auto) (0.2-0.9) 10^3/u L Eos # (Auto) (0.0-0.8) 10^3/u L Baso # (Auto) (0.0-0.1) 10^3/u L Nucleated RBC % (a uto) % Nucleated RBCs # /100WBC Sodium (136-145) mmol/L Potassium (3.5-5.1) mmol/L Chloride (98-107) mmol/L Carbon Dioxide (22-29) mmol/L Anion Gap (5-19) BUN (6-20) mg/dL Creatinine (0.5-0.9) mg/dL GFR Calculation (90-130) mL/min Glucose (65-115) mg/dL Calculated Osmolal ity (285-295) mOsm/k g Calcium (8.5-10.5) mg/dL Total Bilirubin (0.15-1.2) mg/dL AST (0-32) U/L ALT (0-33) U/L Alkaline Phosphata se (35-105) IU/L Total Protein (6.6-8.7) g/dL Albumin (3.5-5.2) g/dL Globulin (1.3-4.6) g/dL Lipase (13-60) U/L HCG, Qual (Negative) Urine Color Yellow (Yellow) Urine Appearance Hazy A (CLEAR) Urine pH 8 H (5-7) Ur Specific Gravit y 1.020 (1.005-1.030) Urine Protein Neg (Negative) Urine Glucose (UA) Norm (Normal) Urine Ketones 2+ H (Negative) Urine Blood 3+ H (Negative) Urine Nitrate Negative (Negative) Urine Bilirubin Neg (Negative) Prot Sulfosalicyli c Acd Negative (Negative) Urine Urobilinogen Norm (Negative) mg/dL Ur Leukocyte Vera ase Negative (Negative) Urine RBC 0-4 H (0-2) /hpf Urine WBC None (0-5) /hpf Ur Squamous Epith Cells 0-4 H (0-5) /hpf Amorphous Sediment 3+ /hpf Urine Bacteria 1+ H (NONE) /hpf Discharge Plan Discharge Patient Disposition: Home Clinical Impression: Migraine aura, persistent, with status migrainosus Nausea & vomiting Qualifiers: Vomiting type: unspecified Vomiting Intractability: intractable Qualified Code(s): R11.2 - Nausea with vomiting, unspecified Condition: Stable Prescriptions: No Action sumatriptan succinate 6 mg/0.5 mL syringe 6 mg SUBCUT ONCE PRN (Reason: migraine headache) Qty: 6 RF: 0 propranolol 10 mg tablet 10 mg PO BID@0700,1999 PRN (Reason: unknown) RF: 0 mirtazapine 15 mg tablet 15 mg PO BEDTIME@1999 RF: 0 duloxetine 60 mg capsule,delayed release(DR/EC) 60 mg PO DAILY@1999 RF: 0 Discharge Orders: Discharge ED (Routine); Ordered 06/05/20 Ordered By: Padmini Zavala Referrals: BRYON Denise, CLINICAL RESEARCH ASSISTANT [Primary Care Provider] - Discharge Diet: Advance as tolerated and Clear Liquid Discharge Activity: Limit activity as instructed Patient Instructions: Migraine Headache (ED), Acute Nausea and Vomiting (ED) Activity Restrictions/Additional Instructions: Rest at home today and tomorrow Avoid exertional activity for the next 24 hours Clear liquid diet then advance as tolerated, avoid fried fatty greasy spicy foods career services assistant will be contacting you with an appointment with Dr. Deleon, neurology for migraine headache continuance. Return to the emergency department for the worst headache of your life or other concerning symptoms. 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
[2020-06-05 01:44] LABS: Basophils % 0.3 %; Eosinophils % 0.2 %; Hematocrit 40.9 % (37.0-47.0); Hemoglobin 13.5 g/dL (11.5-15.3); Lymphocytes # 1.2 10^3/uL (0.8-4.8); Lymphocytes % 12.1 %; Mean Corpuscular Hemoglobin 29.3 pg (28.0-34.0); Mean Corpuscular Volume 88.7 fL (81-99); Mean Platelet Volume 10.5 fL (7.4-10.4); Monocytes # 0.4 10^3/uL (0.2-0.9); Neutrophils # 8.49 10^3/uL (1.8-7.7); Neutrophils % 83.2 %; Nucleated Red Blood Cells % 0 %; Platelet Count 283 10^3/cmm (130-400); Red Blood Count 4.61 10^6/uL (4.1-5.3); Red Cell Distribution Width 12.2 % (12.1-15.1); White Blood Count 10.2 10^3/uL (4.0-10.0)
[2020-06-05 01:51] LABS: Albumin Level 4.6 g/dL (3.5-5.2); Alkaline Phosphatase 86 IU/L (35-105); Blood Urea Nitrogen 8 mg/dL (6-20); Calcium 9.1 mg/dL (8.5-10.5); Carbon Dioxide 25 mmol/L (22-29); Chloride 102 mmol/L (98-107); Creatinine Clr Calc Pharmacy 152.5411; Globulin 2.6 g/dL (1.3-4.6); Glomerular Filtration Rate 144.9 mL/min (90-130); Glucose 127 mg/dL (65-115); Lipase 12 U/L (13-60); Osmolality Calculated 286 mOsm/kg (285-295); Sodium 138 mmol/L (136-145); Total Bilirubin 0.5 mg/dL (0.15-1.2); Total Protein 7.2 g/dL (6.6-8.7)
[2020-06-05 02:05] LABS: Alanine Aminotransferase 24 U/L (0-33); Anion Gap 15.2 (5-19); Aspartate Amino Transferase 24 U/L (0-32); Potassium 4.2 mmol/L (3.5-5.1)
[2020-06-05 02:12] LABS: HCG, Serum Qual Negative (Negative)
[2020-06-05] MEDS: ketorolac 30 mg/mL INJ IVP (02:53)
[2020-06-05 03:00] LABS: Bilirubin Urine Neg (Negative); Blood Urine 3+ (Negative); Glucose Urine UA Norm (Normal); Ketones Urine 2+ (Negative); Leukocyte Esterase Urine Negative (Negative); Nitrate Urine Negative (Negative); Protein Urine Neg (Negative); Sulfosalicylic Acid Urine Negative (Negative); Urine Appearance Hazy (CLEAR); Urine Color Yellow (Yellow); Urobilinogen Urine Norm (Negative); pH Urine 8 (5-7)
[2020-06-05 03:01] LABS: Add Urine Microscopic? YES
[2020-06-05 03:07] LABS: Add Urine Culture? No; Amorphous Sediment Urine 3+ /hpf; Bacteria Urine 1+ /hpf; RBC Urine 0-4 /hpf (0-2); Squamous Epithelial Cell Urine 0-4 /hpf (0-5)
[2020-06-05 03:30] VITALS: BP 121/72; PULSE 65; RESP 17; O2SAT 96
--- NOTE | 2020-06-05 10:10 | DCPLANNER ---
Case manage had message to schedule a follow up appointment for patient with Dr. Deleon. title manager called the office of Dr. Deleon, spoke with Kathryn a follow up appointment was scheduled for June at 11:[address] Deleon. title manager called [phone] and left a voicemail for patient to return rehabilitation case coordinator phone call.
--- NOTE | 2020-06-06 15:18 | DCPLANNER ---
Patient has a follow up appointment scheduled for Thursday, July 09, 2019 at 11:[address] Deleon. Clinic will call patient with appointment information.
--- NOTE | 2020-07-11 15:10 | DCPLANNER ---
Patient had a follow up appointment scheduled for 07.09.[address] Deleon, patient did not attend the appointment.
== END 2020-06-05 03:30 | disposition home or self-care (01) ==
PROVIDERS: Emergency Provider Nurse Practitioner Family; PCP Nurse Practitioner Family
DX: R11.2 Nausea with vomiting, unspecified (principal); G43.501 Persistent migraine aura without cerebral infarction, not intractable, with status migrainosus; F17.290 Nicotine dependence, other tobacco product, uncomplicated
CPT/HCPCS: 12345; 80053; 81001; 83690; 84703; 85025; 96372; 96374; 96375; 99283; J0131; J1885; J2550; J7040

== ENCOUNTER 2020-06-16 22:43 | Emergency (ER) | payer SELFPAY ==
[2020-06-16 23:00] VITALS: BP 127/79; PULSE 46; RESP 12; TEMP 36.4; BMI 18.8
[2020-06-16 23:39] VITALS: PULSE 75; RESP 16; O2SAT 100
[2020-06-16] MEDS: sodium chloride 0.9% 1,000 ML 125 ML IV (23:41)
[2020-06-16] MEDS: SUMAtriptan 6 mg/0.5 mL SDV SUBCUT (23:42)
[2020-06-16] MEDS: ketorolac 30 mg/mL INJ IVP (23:42)
--- NOTE | 2020-06-16 23:42 | ED_ITS ---
HPI - Headache General: Chief Complaint: Headache Stated Complaint: CHRONIC MIGRAINES Time Seen by Provider: 06/16/20 22:58 History of Present Illness: HPI Narrative: Patient says she had a migraine that started today did not have medication takes normally takes sumatriptan. Feels nauseous and has photo and phonophobia also MD elicited complaint: migraine Pertinent past history: migraines Onset (ago): hour(s) Onset description: gradually Exacerbating factors: light and noise Associated symptoms: Reports nausea; Deny chest pain, fever(s) or rash Review of Systems Const: Denies: fever(s), chills or body aches Eyes: Denies: change in vision or blurry vision ENMT: Denies: throat pain or nasal congestion Card: Denies: chest pain or dyspnea on exertion Resp: Denies: dyspnea, productive cough or non-productive cough GI: Reports: nausea Musc: Denies: extremity pain Skin/Breast: Denies: rash Neuro: Reports: headache(s) (Migraine) Psych: Denies: anxiety or depression Bimal/Lymph: Denies: easy bruising PFSH ED PFSH: Family History Other Cancer Diabetes Heart disease Social History Smoking and tobacco status: current every day smoker e-cigarettes E-Cigarette Details: vaporizer device E-cig/vape details: ? Quit status (tobacco): not considering quitting Second hand smoke exposure: No Smoking risk assessment/counseling performed?: No Alcohol intake: never Marital status: Single Female Reproductive History: Date of last menstrual period: 06/09/20 Physical Exam Const: COMMON NORMALS: no acute distress, average body habitus and patient oriented x3 HENMT: COMMON NORMALS: normocephalic HEAD & SCALP: normal to inspection and normocephalic FACE & SINUS: normal facial exam Eye: COMMON NORMALS: conjunctivae normal GENERAL EYE: appearance normal, both eyes and all related structures CONJUNCTIVA: Yes conjunctivae normal Neck/C-Spine: COMMON NORMALS: no JVD Chest: COMMONS NORMALS: normal inspection of the chest Resp: COMMON NORMALS: normal respiratory effort and clear to auscultation bilaterally AUSCULTATION: clear to auscultation bilaterally Cardio: COMMON NORMALS: no JVD, regular rate and regular rhythm RATE: regular rate RHYTHM: regular rhythm GI: COMMON NORMALS: Normal to inspection, nondistended, normoactive bowel sounds present Extremity: COMMON NORMALS: normal to inspection and full ROM Neuro: COMMON NORMALS: patient oriented x3 Course Vital Signs: Vital signs: Vital Signs Temperature 97.5 F L 06/16/20 23:00 Pulse Rate 46 L 06/16/20 23:00 Respiratory Rate 12 06/16/20 23:00 Blood Pressure 127/79 06/16/20 23:00 Discharge Plan Discharge Prescriptions: No Action sumatriptan succinate 6 mg/0.5 mL syringe 6 mg SUBCUT ONCE PRN (Reason: migraine headache) Qty: 6 RF: 0 propranolol 10 mg tablet 10 mg PO BID@0700,1999 PRN (Reason: unknown) RF: 0 mirtazapine 15 mg tablet 15 mg PO BEDTIME@1999 RF: 0 duloxetine 60 mg capsule,delayed release(DR/EC) 60 mg PO DAILY@1999 RF: 0 Coding 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
[2020-06-16] MEDS: dexamethasone 4 mg/mL INJ IVP (23:43)
[2020-06-16] MEDS: diphenhydrAMINE 50 mg/mL SDV 1mL IVP (23:43)
[2020-06-17 00:14] VITALS: BP 147/92; PULSE 78; RESP 17; O2SAT 97
--- NOTE | 2020-06-17 00:29 | PC.NURSE ---
Patients IV came out.
[2020-06-17 01:00] VITALS: BP 95/71; PULSE 58; RESP 17; O2SAT 98
[2020-06-17] MEDS: ondansetron 4 MG Tablet 8 MG PO (01:12)
[2020-06-17] MEDS: dihydroergotamine 1 mg/mL Inj IVP (01:50)
[2020-06-17 01:56] VITALS: BP 124/92; PULSE 62; RESP 14; O2SAT 100
--- NOTE | 2020-06-17 01:58 | PC.NURSE ---
Route of ondansetron changed due to patient pulling out IV. Oral ondansetron tried. Patient vomited those up.
[2020-06-17] MEDS: dihydroergotamine 1 mg/mL Inj 0.5 MG IVP (02:26)
[2020-06-17] MEDS: promethazine 25 mg/mL SDV 1 mL IM (02:31)
[2020-06-17 03:07] VITALS: BP 127/68; PULSE 100; RESP 14; TEMP 36.7; O2SAT 100
== END 2020-06-17 03:07 | disposition home or self-care (01) ==
PROVIDERS: Emergency Provider Nurse Practitioner Family; PCP Nurse Practitioner Family
DX: F17.290 Nicotine dependence, other tobacco product, uncomplicated (principal)
CPT/HCPCS: 12345; 96361; 96372; 96374; 96375; 96376; 99283; 99284; J1100; J1110; J1200; J1885; J2550; J3030; J7030; Q0162

== ENCOUNTER 2020-08-29 10:33 | Emergency (ER) | payer SELFPAY ==
[2020-08-29] VITALS (10 sets, daily range): BP systolic 112–142; BP diastolic 63–88; PULSE 46–77; RESP 18–24; TEMP 36.2–37.2; O2SAT 96–100; BMI 18.8
--- NOTE | 2020-08-29 11:17 | W.ED.HA ---
HPI - Headache General: Chief Complaint: Headache Stated Complaint: MIGRAINE, HALLUCINATIONS, epileptic Time Seen by Provider: 08/29/20 11:00 Source: patient and family Mode of arrival: ambulatory History of Present Illness: HPI Narrative: 30-year-old female, long history of migraines, started having a headache this morning around 7 AM. She took an oral dose of sumatriptan, but had no relief, so she asked her mother to give her a shot of sumatriptan. After her mom gave her the shot, she noticed that the needle had been bent, so she is not sure if she got full dose. Symptoms persisted, nausea, vomiting, hallucinations, photophobia, generalized abdominal pain. Headache is frontal, wraps around like a band. No vision change. No recent fever or head injury. MD elicited complaint: headache and migraine Associated symptoms: Reports diaphoresis, malaise and vomiting; Deny chest pain, fever(s) or rash Review of Systems General: Reports: 10 or more systems reviewed and unremarkable except in HPI and below Const: Reports: malaise and diaphoresis; Denies: fever(s) Eyes: Reports: photophobia; Denies: change in vision or blurry vision ENMT: Denies: throat pain, odynophagia, nasal discharge or post nasal drip Card: Denies: chest pain or irregular heart rhythm GI: Reports: abdominal pain, nausea and vomiting : Denies: difficulty voiding, dysuria or urinary frequency Musc: Reports: neck pain and muscle cramps Skin/Breast: Denies: rash, pruritus or erythema Neuro: Reports: headache(s); Denies: numbness in extremities or weakness in extremities Psych: Reports: anxiety and visual hallucinations PFSH ED PFSH: Family History Other Cancer Diabetes Heart disease Social History Smoking and tobacco status: current every day smoker e-cigarettes E-Cigarette Details: vaporizer device E-cig/vape details: ? Quit status (tobacco): not considering quitting Second hand smoke exposure: No Smoking risk assessment/counseling performed?: No Alcohol intake: never Marital status: Single Female Reproductive History: Date of last menstrual period: 08/20/20 Physical Exam Const: EXAM LIMITATIONS: other limitations (Patient is ill-appearing, with nausea and vomiting, headache) GENERAL APPEARANCE: in distress, lethargic, ill appearing, frail appearing and diaphoretic NUTRITIONAL APPEARANCE: underweight ORIENTATION/CONSCIOUSNESS: Yes oriented to person, Yes oriented to place and Yes lethargic HENMT: COMMON NORMALS: normocephalic, atraumatic and Normal external nose present HEAD & SCALP: normal to inspection, normocephalic and atraumatic FACE & SINUS: normal facial exam and face symmetric NOSE: Normal external nose present Eye: COMMON NORMALS: Equal, round and reactive pupils present, EOMs intact bilaterally, conjunctivae normal and no scleral icterus CONJUNCTIVA: Yes conjunctivae normal PUPIL: Yes Equal, round and reactive pupils present Neck/C-Spine: COMMON NORMALS: full ROM CERVICAL SPINE: No Cervical spine tenderness, No step off deformity, Yes Paracervical muscle tenderness and Yes Trapezius muscle tenderness Resp: COMMON NORMALS: normal respiratory effort and clear to auscultation bilaterally EFFORT & INSPECTION: No abnormal respiratory pattern AUSCULTATION: clear to auscultation bilaterally, no crackles, no rales and no wheezes Cardio: COMMON NORMALS: regular rate, regular rhythm, S1 normal heart sound present and S2 normal heart sound present RATE: regular rate RHYTHM: regular rhythm HEART SOUNDS: S1 normal heart sound present and S2 normal heart sound present GI: PALPATION: Yes Soft to palpation, Yes Tenderness to palpation present (GI) (Generalized), No Guarding due to palpation present (GI) and No Rebound tenderness present Back/Pelvis: GENERAL BACK: No mass, No erythema and No ecchymosis Neuro: SENSORIUM/ORIENTATION: Yes oriented to person, Yes oriented to place and Yes lethargic SPEECH: speech normal GAIT: Yes Unable to assess gait Skin: GENERAL SKIN EXAM: no jaundice and pallor LESIONS: no lesions RASHES: no rashes OTHER: Cool, moist, diaphoretic. Procedures Nerve Block Nerve Block 1: Time out performed: Yes Local Anesthetic: bupivacaine 0.5% Amount of anesthesia used (mL): 5 Side: left and right Nerve Blocks: other (Supraorbital, trochlear) Procedure Successful: Yes Patient Tolerated Procedure: well Complications: none Nerve Block 2: Time out performed: Yes Local Anesthetic: bupivacaine 0.5% Amount of anesthesia used (mL): 5 Side: left and right Nerve Blocks: other (Paraspinous cervical ) Procedure Successful: Yes Patient Tolerated Procedure: well Complications: none Course Vital Signs: Vital signs: Vital Signs Temperature 97.1 F L 08/29/20 10:45 Pulse Rate 48 L 08/29/20 15:00 Respiratory Rate 18 08/29/20 15:00 Blood Pressure 122/79 08/29/20 15:00 Pulse Oximetry 96 08/29/20 15:00 MDM - Headache MDM Narrative: Medical decision making narrative: 30-year-old female with migraine since 7 AM this morning. Headache similar in character to previous migraines, but has not resolved with typical rescue meds. Lab work indicates ketosis, likely from intractable vomiting, mild hyperkalemia. No UTI. Tox screen positive for marijuana; patient has already been counseled on side effects of marijuana use including intractable vomiting, abdominal pain, cardiac arrhythmias. Initially treated with IM Toradol, Zofran, fentanyl-minimal relief. IV placed, IV fluids administered, paraspinous cervical and supraorbital nerve blocks-headache much improved, but still had vomiting. Benadryl and lorazepam administered, nausea improved. Patient was very adamant that she not receive any Haldol. Strict return precautions; fever, worsening headache, confusion, Differential Diagnosis: Differential diagnosis headache: Likely migraine, tension headache, subarachnoid hemorrhage, headache, meningitis and sinusitis Medical Records: Attestation: I reviewed the patient's medical records. Lab Data: Attestation: I reviewed the patient's lab results. Labs: Lab Results 08/29/20 08/29/20 08/29/20 Range/Units 12:12 12:12 13:19 WBC 10.7 H (4.0-10.0) 10^3/ uL RBC 5.00 (4.1-5.3) 10^6/u L Hgb 14.5 (11.5-15.3) g/dL Hct 43.6 (37.0-47.0) % MCV 87.2 (81-99) fL MCH 29.0 (28.0-34.0) pg MCHC 33.3 (30.0-36.0) g/dL RDW 12.1 (12.1-15.1) % Plt Count 310 (130-400) 10^3/c mm MPV 10.3 (7.4-10.4) fL Neut % (Auto) 87.1 % Lymph % (Auto) 10.2 % Candler % (Auto) 2.0 % Eos % (Auto) 0.0 % Baso % (Auto) 0.3 % Neut # (Auto) 9.28 H (1.8-7.7) 10^3/u L Lymph # (Auto) 1.1 (0.8-4.8) 10^3/u L Candler # (Auto) 0.2 (0.2-0.9) 10^3/u L Eos # (Auto) 0.0 (0.0-0.8) 10^3/u L Baso # (Auto) 0.0 (0.0-0.1) 10^3/u L Nucleated RBC % (a uto) 0 % Nucleated RBCs # 0.0 /100WBC Sodium 136 (136-145) mmol/L Potassium 5.8 H (3.5-5.1) mmol/L Chloride 103 (98-107) mmol/L Carbon Dioxide 19 L (22-29) mmol/L Anion Gap 19.8 H (5-19) BUN 8 (6-20) mg/dL Creatinine 0.5 (0.5-0.9) mg/dL GFR Calculation 143.9 H (90-130) mL/min Glucose 124 H (65-115) mg/dL Calculated Osmolal ity 282 L (285-295) mOsm/k g Calcium 9.3 (8.5-10.5) mg/dL Magnesium 1.9 (1.7-2.3) mg/dL Total Bilirubin 0.5 (0.15-1.2) mg/dL AST 17 (0-32) U/L ALT 11 (0-33) U/L Alkaline Phosphata se 84 (35-105) IU/L Total Protein 7.7 (6.6-8.7) g/dL Albumin 4.6 (3.5-5.2) g/dL Globulin 3.1 (1.3-4.6) g/dL Lipase 11 L (13-60) U/L Ser , Danis i-Qnt 0.50 mIU/mL Urine Color Yellow (Yellow) Urine Appearance Clear (CLEAR) Urine pH 7 (5-7) Ur Specific Gravit y 1.015 (1.005-1.030) Urine Protein 1+ H (Negative) Urine Glucose (UA) Norm (Normal) Urine Ketones 3+ H (Negative) Urine Blood Neg (Negative) Urine Nitrate Negative (Negative) Urine Bilirubin 1+ H (Negative) Urine Urobilinogen 1 H (Negative) mg/dL Ur Leukocyte Vera ase Negative (Negative) Urine RBC None (0-2) /hpf Urine WBC 0-4 H (0-5) /hpf Ur Squamous Epith Cells 5-10 H (0-5) /hpf Amorphous Sediment Not Reportable Urine Bacteria 1+ H (NONE) /hpf Urine Mucus 2+ /hpf Urine Opiates Scre en (Negative) ng/mL Ur Barbiturates Sc reen (Negative) ng/mL Ur Phencyclidine S crn (Negative) ng/mL Ur Amphetamines Sc reen (Negative) ng/mL U Benzodiazepines Scrn (Negative) ng/mL Urine Cocaine Scre en (Negative) ng/mL U Marijuana (THC) Screen (Negative) ng/mL 08/29/20 Range/Units 13:19 WBC (4.0-10.0) 10^3/ uL RBC (4.1-5.3) 10^6/u L Hgb (11.5-15.3) g/dL Hct (37.0-47.0) % MCV (81-99) fL MCH (28.0-34.0) pg MCHC (30.0-36.0) g/dL RDW (12.1-15.1) % Plt Count (130-400) 10^3/c mm MPV (7.4-10.4) fL Neut % (Auto) % Lymph % (Auto) % Candler % (Auto) % Eos % (Auto) % Baso % (Auto) % Neut # (Auto) (1.8-7.7) 10^3/u L Lymph # (Auto) (0.8-4.8) 10^3/u L Candler # (Auto) (0.2-0.9) 10^3/u L Eos # (Auto) (0.0-0.8) 10^3/u L Baso # (Auto) (0.0-0.1) 10^3/u L Nucleated RBC % (a uto) % Nucleated RBCs # /100WBC Sodium (136-145) mmol/L Potassium (3.5-5.1) mmol/L Chloride (98-107) mmol/L Carbon Dioxide (22-29) mmol/L Anion Gap (5-19) BUN (6-20) mg/dL Creatinine (0.5-0.9) mg/dL GFR Calculation (90-130) mL/min Glucose (65-115) mg/dL Calculated Osmolal ity (285-295) mOsm/k g Calcium (8.5-10.5) mg/dL Magnesium (1.7-2.3) mg/dL Total Bilirubin (0.15-1.2) mg/dL AST (0-32) U/L ALT (0-33) U/L Alkaline Phosphata se (35-105) IU/L Total Protein (6.6-8.7) g/dL Albumin (3.5-5.2) g/dL Globulin (1.3-4.6) g/dL Lipase (13-60) U/L Ser , Danis i-Qnt mIU/mL Urine Color (Yellow) Urine Appearance (CLEAR) Urine pH (5-7) Ur Specific Gravit y (1.005-1.030) Urine Protein (Negative) Urine Glucose (UA) (Normal) Urine Ketones (Negative) Urine Blood (Negative) Urine Nitrate (Negative) Urine Bilirubin (Negative) Urine Urobilinogen (Negative) mg/dL Ur Leukocyte Vera ase (Negative) Urine RBC (0-2) /hpf Urine WBC (0-5) /hpf Ur Squamous Epith Cells (0-5) /hpf Amorphous Sediment Urine Bacteria (NONE) /hpf Urine Mucus /hpf Urine Opiates Scre en Negative (Negative) ng/mL Ur Barbiturates Sc reen Negative (Negative) ng/mL Ur Phencyclidine S crn Negative (Negative) ng/mL Ur Amphetamines Sc reen Negative (Negative) ng/mL U Benzodiazepines Scrn Negative (Negative) ng/mL Urine Cocaine Scre en Negative (Negative) ng/mL U Marijuana (THC) Screen Positive H (Negative) ng/mL Discharge Plan Discharge Patient Disposition: Home Clinical Impression: Tension headache, Acute dehydration, Acute hyperkalemia, Ketosis Nausea & vomiting Qualifiers: Vomiting type: unspecified Vomiting Intractability: intractable Qualified Code(s): R11.2 - Nausea with vomiting, unspecified Migraine Qualifiers: Migraine type: with aura Status migrainosus presence: with status migrainosus Intractability: intractable Qualified Code(s): G43.111 - Migraine with aura, intractable, with status migrainosus Condition: Stable Prescriptions: New sumatriptan 20 mg/actuation spray,non-aerosol 20 mg intranasal Q2H PRN (Reason: migraine headache) Qty: 6 RF: 0 No Action sumatriptan succinate 6 mg/0.5 mL syringe 6 mg SUBCUT ONCE PRN (Reason: migraine headache) Qty: 6 RF: 0 duloxetine 60 mg capsule,delayed release(DR/EC) 60 mg PO DAILY Qty: 30 RF: 2 sumatriptan succinate [Imitrex] 100 mg tablet See Rx Instructions .ROUTE .COMPLEX Qty: 9 RF: 0 propranolol 10 mg tablet 10 mg PO BID RF: 0 mirtazapine 15 mg tablet 15 mg PO BEDTIME RF: 0 Discharge Orders: Discharge ED (Routine); Ordered 08/29/20 Ordered By: Katerine Gallo Referrals: BRYON Denise, [facility] [Primary Care Provider] - Discharge Diet: Advance as tolerated Discharge Activity: Resume usual activity Patient Instructions: Headache - Migraine (Adult) Activity Restrictions/Additional Instructions: Follow-up with your primary care doctor in the next 3 to 5 days. Rest, drink plenty of fluids, advance your diet slowly to avoid recurrent nausea and vomiting. Return immediately to the ER if you develop worsening headache, fever, confusion, vision changes, or any other sudden changes. 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
[2020-08-29] MEDS: fentaNYL 50 mcg/mL INJ 2mL 75 MCG XX (11:49)
[2020-08-29] MEDS: ondansetron 2 mg/ML SDV 2 mL 4 MG IM (11:50)
[2020-08-29] MEDS: ketorolac 30 mg/mL INJ IM (11:50)
[2020-08-29] MEDS: sodium chloride 0.9% 1,000 ML 999 ML IV (12:12)
--- NOTE | 2020-08-29 12:20 | PC.PHAR ---
[facility] pharmacy filled the sumatriptan injection 6mg/0.5ml and accidentally put nasal spray directions on prescription. Nasal spray was not prescribed. Injection was the correct prescription.
[2020-08-29 12:26] LABS: Basophils % 0.3 %; Hematocrit 43.6 % (37.0-47.0); Hemoglobin 14.5 g/dL (11.5-15.3); Lymphocytes # 1.1 10^3/uL (0.8-4.8); Lymphocytes % 10.2 %; Mean Corpuscular HGB Conc 33.3 g/dL (30.0-36.0); Mean Corpuscular Volume 87.2 fL (81-99); Mean Platelet Volume 10.3 fL (7.4-10.4); Monocytes # 0.2 10^3/uL (0.2-0.9); Neutrophils # 9.28 10^3/uL (1.8-7.7); Neutrophils % 87.1 %; Nucleated Red Blood Cells % 0 %; Platelet Count 310 10^3/cmm (130-400); Red Cell Distribution Width 12.1 % (12.1-15.1); White Blood Count 10.7 10^3/uL (4.0-10.0)
[2020-08-29] MEDS: SUMAtriptan 6 mg/0.5 mL SDV SUBCUT (12:49)
--- NOTE | 2020-08-29 13:13 | PC.NURSE ---
Dr Gallo injected trigger point with medication
[2020-08-29] MEDS: diphenhydrAMINE 50 mg/mL SDV 1mL 25 MG IVP (13:24)
[2020-08-29 13:26] LABS: Alanine Aminotransferase 11 U/L (0-33); Albumin Level 4.6 g/dL (3.5-5.2); Alkaline Phosphatase 84 IU/L (35-105); Blood Urea Nitrogen 8 mg/dL (6-20); Calcium 9.3 mg/dL (8.5-10.5); Carbon Dioxide 19 mmol/L (22-29); Chloride 103 mmol/L (98-107); Creatinine Clr Calc Pharmacy 151.1544; Globulin 3.1 g/dL (1.3-4.6); Glomerular Filtration Rate 143.9 mL/min (90-130); Glucose 124 mg/dL (65-115); Lipase 11 U/L (13-60); Magnesium 1.9 mg/dL (1.7-2.3); Osmolality Calculated 282 mOsm/kg (285-295); Sodium 136 mmol/L (136-145); Total Bilirubin 0.5 mg/dL (0.15-1.2); Total Protein 7.7 g/dL (6.6-8.7)
[2020-08-29 13:37] LABS: Blood Urine Neg (Negative); Glucose Urine UA Norm (Normal); Ketones Urine 3+ (Negative); Nitrate Urine Negative (Negative); Protein Urine 1+ (Negative); Specific Gravity, Urine 1.015 (1.005-1.030); Urine Appearance Clear (CLEAR); Urine Color Yellow (Yellow); pH Urine 7 (5-7)
[2020-08-29 13:37] LABS: Anion Gap 19.8 (5-19); Aspartate Amino Transferase 17 U/L (0-32); Potassium 5.8 mmol/L (3.5-5.1)
[2020-08-29 13:38] LABS: Bilirubin Urine 1+ (Negative); Leukocyte Esterase Urine Negative (Negative); Urobilinogen Urine 1 mg/dL (Negative)
[2020-08-29 13:46] LABS: Amphetamines Screen Urine Negative (Negative); Barbiturates Screen Urine Negative (Negative); Benzodiazepines Screen Urine Negative (Negative); Cocaine Screen Urine Negative (Negative); Opiate Screen Urine Negative (Negative); PCP Screen Urine Negative (Negative); THC Screen Urine Positive (Negative)
[2020-08-29 13:50] LABS: Add Urine Culture? No; Bacteria Urine 1+ /hpf; Mucus Urine 2+ /hpf; WBC Urine 0-4 /hpf (0-5)
--- NOTE | 2020-08-29 14:21 | PC.NURSE ---
Lights off, mother at bedside fluids completed
[2020-08-29] MEDS: sodium chloride 0.9% 500 ML 999 ML IV (14:24)
[2020-08-29] MEDS: LORazepam 2 mg/mL INJ 1 mL 0.5 MG IVP (14:41)
--- NOTE | 2020-08-29 16:09 | PC.NURSE ---
Continue to monitor, mother at bedside.
== END 2020-08-29 17:48 | disposition home or self-care (01) ==
PROVIDERS: Emergency Provider Family Medicine; PCP Nurse Practitioner Family
DX: G44.209 Tension-type headache, unspecified, not intractable (principal); G43.111 Migraine with aura, intractable, with status migrainosus; R11.2 Nausea with vomiting, unspecified; E86.0 Dehydration; E87.5 Hyperkalemia; E88.89 Other specified metabolic disorders; F17.290 Nicotine dependence, other tobacco product, uncomplicated
CPT/HCPCS: 80053; 80306; 81001; 83690; 83735; 84702; 85025; 96361; 96365; 96372; 96375; 99284; J1200; J1885; J2060; J2405; J3010; J3030; J3490; J7030; J7040

== ENCOUNTER 2020-09-28 17:27 | Emergency (ER) | payer SELFPAY ==
[2020-09-28 17:51] VITALS: BP 91/60; PULSE 83; RESP 18; TEMP 37.1; O2SAT 97; BMI 18.8
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
[2020-09-28] MEDS: sodium chloride 0.9% 1,000 ML 999 ML IV (19:44)
[2020-09-28 19:46] LABS: Basophils % 0.2 %; Eosinophils % 0.2 %; Hematocrit 43.7 % (37.0-47.0); Hemoglobin 14.9 g/dL (11.5-15.3); Lymphocytes # 1.6 10^3/uL (0.8-4.8); Lymphocytes % 25.6 %; Mean Corpuscular HGB Conc 34.1 g/dL (30.0-36.0); Mean Corpuscular Hemoglobin 28.8 pg (28.0-34.0); Mean Corpuscular Volume 84.5 fL (81-99); Mean Platelet Volume 10.4 fL (7.4-10.4); Monocytes # 0.4 10^3/uL (0.2-0.9); Monocytes % 6.9 %; Neutrophils # 4.25 10^3/uL (1.8-7.7); Neutrophils % 66.8 %; Nucleated Red Blood Cells % 0 %; Platelet Count 306 10^3/cmm (130-400); Red Blood Count 5.17 10^6/uL (4.1-5.3); Red Cell Distribution Width 12.2 % (12.1-15.1); White Blood Count 6.4 10^3/uL (4.0-10.0)
[2020-09-28] MEDS: ondansetron 2 mg/ML SDV 2 mL 4 MG IVP (19:46)
[2020-09-28] MEDS: diphenhydrAMINE 50 mg/mL SDV 1mL 25 MG IVP (19:48)
[2020-09-28] MEDS: LORazepam 2 mg/mL INJ 1 mL 1 MG IVP (19:51)
[2020-09-28] MEDS: valproic acid inj 500 MG in sodium chloride 0.9% 50 ML 55 MG IV (19:55)
[2020-09-28 19:57] LABS: HCG, Serum Qual Negative (Negative)
[2020-09-28 20:03] LABS: Alanine Aminotransferase 18 U/L (0-33); Albumin Level 4.5 g/dL (3.5-5.2); Alkaline Phosphatase 78 IU/L (35-105); Anion Gap 14.8 (5-19); Aspartate Amino Transferase 16 U/L (0-32); Blood Urea Nitrogen 4 mg/dL (6-20); Calcium 8.6 mg/dL (8.5-10.5); Carbon Dioxide 26 mmol/L (22-29); Chloride 97 mmol/L (98-107); Globulin 2.6 g/dL (1.3-4.6); Glomerular Filtration Rate 186.2 mL/min (90-130); Glucose 119 mg/dL (65-115); Lipase 12 U/L (13-60); Osmolality Calculated 278 mOsm/kg (285-295); Sodium 135 mmol/L (136-145); Total Bilirubin 0.4 mg/dL (0.15-1.2); Total Protein 7.1 g/dL (6.6-8.7)
[2020-09-28 20:11] LABS: Potassium 2.8 mmol/L (3.5-5.1)
[2020-09-28] MEDS: potassium chloride ER 20 mEq Tablet 40 MEQ PO (20:34)
[2020-09-28 20:35] LABS: Magnesium 2.2 mg/dL (1.7-2.3)
--- NOTE | 2020-09-28 21:25 | PC.NURSE ---
Pt did want to stay for the IV potassium. Pt discussed this with Enma VANCE and was told if she did not want the medication and wanted to go home then she would need to sign out against medical advice. Pt advised of the risks of leaving and states she still wants to leave and she has potassium pills at home she can take.
== END 2020-09-28 21:38 | disposition left against medical advice (07) ==
PROVIDERS: Emergency Provider Physician Assistant; PCP Nurse Practitioner Family
DX: E87.6 Hypokalemia (principal); R11.15 Cyclical vomiting syndrome unrelated to migraine; Z53.29 Procedure and treatment not carried out because of patient's decision for other reasons
CPT/HCPCS: 80053; 83690; 83735; 84703; 85025; 96365; 96375; 99284; J1200; J2060; J2405; J7030

== ENCOUNTER 2020-12-12 11:36 | Emergency (ER) | payer SELFPAY ==
[2020-12-12] VITALS (7 sets, daily range): BP systolic 90–142; BP diastolic 56–106; PULSE 48–89; RESP 18–25; TEMP 36.4; O2SAT 96–100; BMI 18.8
--- NOTE | 2020-12-12 12:31 | CT_ITS ---
WS: [id number] CT ABDOMEN AND PELVIS WITH CONTRAST HISTORY: Abdominal pain with nausea and headache. TECHNIQUE: Imaging performed of the abdomen and pelvis with IV contrast. Single phase imaging of the abdomen. Coronal and sagittal reformats are submitted. All CT scans at [facility] use at least one of these dose optimization techniques: automated exposure control; mA and/or kV adjustment per patient size (includes targeted exams where dose is matched to clinical indication); or iterativ e reconstruction. IV CONTRAST: Omnipaque 300; 95 mL IV. Oral contrast: No DLP: 741.63 mGy.cm COMPARISON: 03/06/2018 Lower thorax: Lung bases are clear. Heart is normal size. No hiatal hernia. Liver/biliary system: Normal size with no intrahepatic dilatation. Gallbladder: Normal. No gallstones or wall thickening. No pericholecystic fluid. Pancreas: Normal size pancreas and pancreatic duct. No adjacent inflammation. Spleen: Normal size spleen. No mass or infarct. Adrenal glands: Normal. Right kidney: Normal. Left kidney: Normal. Aorta: Normal. Lymphadenopathy: None. Free fluid: There is a small amount of free fluid in the pelvis. May be physiologic and related to ru ptured ovarian cyst. GI tract: The appendix is not identified. No inflammatory changes in the RIGHT lower quadrant. There is no GI tract obstruction. There is mild proliferation of fat in the pelvis and prominence of the va sa recta. Abdominal wall: Unremarkable abdominal wall. No hernia. Pelvis: Free fluid in the pelvis. May be due to a ruptured ovarian cyst. There are extensive venous c ollaterals within the pelvis. Bones: Unremarkable. CT/CT abdomen pelvis w con* [id number] IMPRESSION: 1. Appendix not identified. 2. Small amount of free fluid in the pelvis may be physiologic and related to ruptured cyst. 3. Extensive venous collaterals in the pelvis. Consider pelvic venous congesti on syndrome. 4. Proliferation of fat with prominent vasa recta in the pelvis. These changes can be seen with inflammatory bowel disease such as Crohn's. 5. No GI tract obstruction at this time. GI tract cannot be adequately evaluat ed for Crohn's disease without good oral contrast.
[2020-12-12] MEDS: dexamethasone 10 mg/mL INJ IVP (12:46)
[2020-12-12] MEDS: promethazine 25 mg/mL SDV 1 mL IM (12:47)
[2020-12-12 12:51] LABS: Basophils % 0.3 %; Hematocrit 43.1 % (37.0-47.0); Hemoglobin 14.5 g/dL (11.5-15.3); Lymphocytes # 1.6 10^3/uL (0.8-4.8); Lymphocytes % 13.2 %; Mean Corpuscular HGB Conc 33.6 g/dL (30.0-36.0); Mean Corpuscular Hemoglobin 28.7 pg (28.0-34.0); Mean Corpuscular Volume 85.3 fL (81-99); Mean Platelet Volume 10.1 fL (7.4-10.4); Monocytes # 0.7 10^3/uL (0.2-0.9); Monocytes % 5.6 %; Neutrophils # 9.57 10^3/uL (1.8-7.7); Neutrophils % 80.6 %; Nucleated Red Blood Cells % 0 %; Platelet Count 348 10^3/cmm (130-400); Red Blood Count 5.05 10^6/uL (4.1-5.3); Red Cell Distribution Width 13.3 % (12.1-15.1); White Blood Count 11.9 10^3/uL (4.0-10.0)
[2020-12-12] MEDS: LORazepam 2 mg/mL INJ 1 mL IVP (12:52)
[2020-12-12 13:11] LABS: Alanine Aminotransferase 19 U/L (0-33); Alkaline Phosphatase 82 IU/L (35-105); Anion Gap 19.7 (5-19); Blood Urea Nitrogen 9 mg/dL (6-20); Calcium 9.3 mg/dL (8.5-10.5); Carbon Dioxide 21 mmol/L (22-29); Chloride 100 mmol/L (98-107); Globulin 2.2 g/dL (1.3-4.6); Glomerular Filtration Rate 186.2 mL/min (90-130); Glucose 121 mg/dL (65-115); Lipase 16 U/L (13-60); Osmolality Calculated 284 mOsm/kg (285-295); Potassium 3.7 mmol/L (3.5-5.1); Sodium 137 mmol/L (136-145); Total Bilirubin 0.5 mg/dL (0.15-1.2); Total Protein 7.2 g/dL (6.6-8.7)
[2020-12-12 13:19] LABS: Aspartate Amino Transferase 16 U/L (0-32)
--- NOTE | 2020-12-12 13:32 | W.ED.HA ---
HPI - Headache General: Chief Complaint: Headache Stated Complaint: migraine, abd pain, N/V Time Seen by Provider: 12/12/20 12:12 History of Present Illness: HPI Narrative: 30-year-old female patient arrives to ER with acute onset migraine headache with abd pain and vomitting. She reports onset this am. She reports took Imitrex for migraine, did not help. Pt states this is like her typical migraine but that the meds didnt help. Pt c/o sensitivity to light. Pt denies any fever or urinary symptoms Associated symptoms: Reports nausea and vomiting; Deny chest pain, confusion, diaphoresis, fever(s), lightheadedness, malaise, pre-syncope, rash or syncope Review of Systems Const: Denies: fever(s), chills, body aches, change in appetite, change in weight, fatigue, malaise or diaphoresis Eyes: Reports: photophobia; Denies: change in vision, blurry vision, blind spots, eye discomfort, eye discharge, eye redness, floaters or seeing flashes ENMT: Denies: throat pain, uvular edema, enlarged tonsils, odynophagia, hoarseness, mouth pain, swelling of lips/tongue, oral sores, bleeding gums, dental pain, dry mouth, ear or mastoid pain, ear discharge, change in hearing, tinnitus, disequilibrium, nasal discharge, nasal congestion, post nasal drip or sinus pain Card: Denies: chest pain, palpitations, irregular heart rhythm, edema, swelling of feet/ankles, lightheadedness, syncope, pre-syncope, dyspnea on exertion, orthopnea, leg pain with exertion or acrocyanosis Resp: Denies: dyspnea, productive cough, non-productive cough, wheezing, stridor, pain on inspiration, change in phlegm color, hemoptysis or chest congestion GI: Reports: abdominal pain, nausea and vomiting; Denies: hematemesis, dysphagia, diarrhea, constipation, GI cramping, change in bowel habits or rectal pain : Denies: flank pain, difficulty voiding, dysuria, urinary frequency, urinary urgency, urinary hesitancy or hematuria Musc: Denies: neck pain, back pain, extremity pain, extremity swelling, joint pain, joint swelling, joint redness, joint warmth or deformity Skin/Breast: Denies: rash, pruritus, erythema, sores, new lesions, changes in skin color or dry skin Neuro: Reports: headache(s); Denies: numbness in extremities, weakness in extremities, sensory changes, lack of coordination, difficulty walking, frequent falls, dizziness, vertigo, confusion, behavioral changes, Slurred speech present, difficulty communicating thoughts or seizure-like activity Psych: Denies: anxiety, depression, suicidal ideation or homicidal ideation Endo: Denies: polyuria, polydipsia, tired all the time, cold intolerance, excessive sweating, flushing, hot flashes or heat intolerance Bimal/Lymph: Denies: easy bruising, easy bleeding, petechiae, purpura, enlarged lymph nodes or tender lymph nodes All/Imm: Denies: urticaria, throat swelling, tongue swelling, facial swelling, acute wheezing or itchy eyes PFSH ED PFSH: Family History Other Cancer Diabetes Heart disease Social History Smoking and tobacco status: current every day smoker e-cigarettes E-Cigarette Details: vaporizer device E-cig/vape details: ? Quit status (tobacco): not considering quitting Second hand smoke exposure: No Smoking risk assessment/counseling performed?: No Alcohol intake: never Marital status: Single Female Reproductive History: Date of last menstrual period: 12/05/20 Physical Exam Const: COMMON NORMALS: no acute distress, patient oriented x3, healthy appearing, alert and well nourished GENERAL APPEARANCE: cooperative, comfortable, well kempt and well developed; not ill appearing ORIENTATION/CONSCIOUSNESS: Yes awake, Yes oriented to person, Yes oriented to place and Yes oriented to time HENMT: COMMON NORMALS: normocephalic, atraumatic, hearing grossly normal bilaterally, external ears normal, EAC's normal, TM's normal bilaterally, Normal external nose present, Normal nasal mucous membranes and turbinates present and moist oral mucous membranes HEAD & SCALP: normal to inspection, normocephalic and atraumatic FACE & SINUS: normal facial exam, sinuses nontender and face symmetric NOSE: Normal external nose present, Normal nares present, Normal nasal mucous membranes and turbinates present, No nasal discharge present and Abnormal external nose present EXTERNAL EAR: Yes external ears normal and Yes mastoids normal EXTERNAL AUDITORY CANAL: EAC's normal TYMPANIC MEMBRANE: TM's normal bilaterally MOUTH: Normal oral and palatal mucosa present, lip normal, tongue normal and Normal salivary glands and ducts present THROAT: no uvular edema Eye: COMMON NORMALS: Equal, round and reactive pupils present, EOMs intact bilaterally, conjunctivae normal, no scleral icterus and no papilledema GENERAL EYE: appearance normal, both eyes and all related structures EYELID: eyelids normal CONJUNCTIVA: Yes conjunctivae normal SCLERA: sclerae normal CORNEA: Yes corneas normal PUPIL: Yes Equal, round and reactive pupils present DIRECT OPHTHALMOSCOPY: Yes no papilledema Neck/C-Spine: COMMON NORMALS: full ROM, no lymphadenopathy, supple, no meningeal signs, no JVD and Thyroid normal GENERAL: Yes normal visual inspection and Yes trachea midline THYROID: Thyroid normal CERVICAL SPINE: Yes cervical ROM normal Lymph: LYMPHATIC: no lymphadenopathy noted and no lymphedema noted Chest: COMMONS NORMALS: normal inspection of the chest and normal palpation of entire chest wall Resp: COMMON NORMALS: normal respiratory effort, No retractions, No use of accessory muscles and clear to auscultation bilaterally EFFORT & INSPECTION: Yes able to speak in complete sentences and Yes symmetric chest movement AUSCULTATION: clear to auscultation bilaterally Cardio: COMMON NORMALS: no JVD, regular rate and regular rhythm RATE: regular rate RHYTHM: regular rhythm GI: COMMON NORMALS: Normal to inspection, nondistended, normoactive bowel sounds present, Soft to palpation, No hepatosplenomegaly present, no masses and no bruits INSPECTION: Yes normal to inspection and Yes other (Pt is diffusely tender screams if I apply the lightest pressure to anywhere) AUSCULTATION: Yes normoactive bowel sounds PALPATION: Yes Soft to palpation and Yes No hepatosplenomegaly present PERCUSSION: normal to percussion RECTAL EXAM: deferred : COMMON NORMALS: Yes no CVA tenderness, Yes normal external appearance, Yes normal appearance of the vagina, Yes normal appearance of the cervix, Yes normal bimanual exam, Yes No adnexal tenderness and Yes no masses BLADDER/KIDNEY EXAM: Yes no CVA tenderness BIMANUAL EXAM - VAGINA & UTERUS: Yes normal bimanual exam Back/Pelvis: COMMON NORMALS: no CVA tenderness, thoracic and lumbar spine normal to inspection, no thoracic nor lumbar tenderness, thoraco-lumbar ROM normal and straight leg raise negative bilaterally THORACIC SPINE/UPPER BACK: Yes normal to inspection LUMBAR SPINE/LOWER BACK: Yes normal to inspection Extremity: COMMON NORMALS: normal to inspection, full ROM and capillary refill normal GENERAL: Yes normal exam except as noted Neuro: COMMON NORMALS: patient oriented x3, CN's II-XII intact bilaterally, moves all extremities, no focal motor deficits, no sensory deficits noted, deep tendon reflexes 2+ bilaterally and gait normal SENSORIUM/ORIENTATION: Yes alert, Yes oriented to person, Yes oriented to place and Yes oriented to time MENINGEAL SIGNS: Yes no meningeal signs CRANIAL NERVES: Yes CN normal except as noted SPEECH: speech normal GAIT: Yes Normal gait present SENSORY EXAM: Yes extremities MOTOR EXAM: 5/5 motor strength present throughout Psych: COMMON NORMALS: mental status grossly normal, Normal thought process present, cooperative, normal affect, speech normal, activity/motor behavior normal, denies hallucinations, denies homicidal ideation and denies suicidal ideation APPEARANCE: Yes grossly normal and Yes well kempt ATTITUDE: Yes calm ACTIVITY/MOTOR BEHAVIOR: Yes appropriate eye contact SPEECH: Yes normal speech THOUGHT PROCESS: Normal thought process present THOUGHT CONTENT: Yes Normal thought content present ATTENTION/CONCENTRATION: Yes attention grossly intact MEMORY/COGNITION: Yes memory grossly intact INSIGHT: Good insight present (Psych) JUDGEMENT: Good judgement present (Psych) Skin: COMMON NORMALS: no rashes or lesions noted, no wounds, turgor normal, no jaundice, no petechiae and no mottling GENERAL SKIN EXAM: no rashes or lesions noted and turgor normal Course Vital Signs: Vital signs: Vital Signs Temperature 97.5 F L 12/12/20 12:07 Pulse Rate 67 12/12/20 16:00 Respiratory Rate 18 12/12/20 16:00 Blood Pressure 96/60 12/12/20 16:00 Pulse Oximetry 98 12/12/20 16:00 MDM - Headache MDM Narrative: Medical decision making narrative: Pt is well appearing non toxic and in no acute distress. 30-year-old female patient arrives to ER with acute onset migraine headache with abd pain and vomitting. She reports onset this am. She reports took Imitrex for migraine, did not help. Pt states this is like her typical migraine but that the meds didnt help. Pt c/o sensitivity to light. Pt denies any fever or urinary symptoms Headache similar in character to previous migraines with no red flag warnings Tox screen positive for marijuana; patient has already been counseled on side effects of marijuana use including intractable vomiting, abdominal pain, cardiac arrhythmias and states she will not stop using this. Initially treated with Phenrgan, Decadron, Ativan and and patient had resolutions of symptoms. IV placed, IV fluids administered, CT abd and pelvis findings discussed with patient and advised to follow up with HANDICRAFTS TEACHER for possible Pelvic congestion sydrome. pt states she has no concerns for STDs or no vaginal discharge or pelvic pain Strict return precautions discussed with patient Lab Data: Labs: Lab Results 12/12/20 12/12/20 12/12/20 Range/Units 12:35 12:35 13:09 WBC 11.9 H (4.0-10.0) 10^3/ uL RBC 5.05 (4.1-5.3) 10^6/u L Hgb 14.5 (11.5-15.3) g/dL Hct 43.1 (37.0-47.0) % MCV 85.3 (81-99) fL MCH 28.7 (28.0-34.0) pg MCHC 33.6 (30.0-36.0) g/dL RDW 13.3 (12.1-15.1) % Plt Count 348 (130-400) 10^3/c mm MPV 10.1 (7.4-10.4) fL Neut % (Auto) 80.6 % Lymph % (Auto) 13.2 % [place] % (Auto) 5.6 % Eos % (Auto) 0.0 % Baso % (Auto) 0.3 % Neut # (Auto) 9.57 H (1.8-7.7) 10^3/u L Lymph # (Auto) 1.6 (0.8-4.8) 10^3/u L [place] # (Auto) 0.7 (0.2-0.9) 10^3/u L Eos # (Auto) 0.0 (0.0-0.8) 10^3/u L Baso # (Auto) 0.0 (0.0-0.1) 10^3/u L Nucleated RBC % (a uto) 0 % Nucleated RBCs # 0.0 /100WBC Sodium 137 (136-145) mmol/L Potassium 3.7 (3.5-5.1) mmol/L Chloride 100 (98-107) mmol/L Carbon Dioxide 21 L (22-29) mmol/L Anion Gap 19.7 H (5-19) BUN 9 (6-20) mg/dL Creatinine 0.4 L (0.5-0.9) mg/dL GFR Calculation 186.2 H (90-130) mL/min Glucose 121 H (65-115) mg/dL Calculated Osmolal ity 284 L (285-295) mOsm/k g Calcium 9.3 (8.5-10.5) mg/dL Total Bilirubin 0.5 (0.15-1.2) mg/dL AST 16 (0-32) U/L ALT 19 (0-33) U/L Alkaline Phosphata se 82 (35-105) IU/L Total Protein 7.2 (6.6-8.7) g/dL Albumin 5.0 (3.5-5.2) g/dL Globulin 2.2 (1.3-4.6) g/dL Lipase 16 (13-60) U/L HCG, Qual (Negative) Urine Color Brown (Yellow) Urine Appearance Cloudy (CLEAR) Urine pH 5 (5-7) Ur Specific Gravit y 1.025 (1.005-1.030) Urine Protein 1+ H (Negative) Urine Glucose (UA) Norm (Normal) Urine Ketones 3+ H (Negative) Urine Blood Neg (Negative) Urine Nitrate Negative (Negative) Urine Bilirubin 1+ H (Negative) Urine Urobilinogen 4 H (Negative) mg/dL Ur Leukocyte Vera ase Negative (Negative) Urine RBC None (0-2) /hpf Urine WBC 0-4 H (0-5) /hpf Ur Squamous Epith Cells 0-4 H (0-5) /hpf Amorphous Sediment Not Reportable Urine Bacteria 3+ H (NONE) /hpf Urine Mucus 2+ /hpf Urine Opiates Scre en (Negative) ng/mL Ur Barbiturates Sc reen (Negative) ng/mL Ur Phencyclidine S crn (Negative) ng/mL Ur Amphetamines Sc reen (Negative) ng/mL U Benzodiazepines Scrn (Negative) ng/mL Urine Cocaine Scre en (Negative) ng/mL U Marijuana (THC) Screen (Negative) ng/mL 12/12/20 12/12/20 12/12/20 Range/Units 13:09 13:15 15:13 WBC (4.0-10.0) 10^3/ uL RBC (4.1-5.3) 10^6/u L Hgb (11.5-15.3) g/dL Hct (37.0-47.0) % MCV (81-99) fL MCH (28.0-34.0) pg MCHC (30.0-36.0) g/dL RDW (12.1-15.1) % Plt Count (130-400) 10^3/c mm MPV (7.4-10.4) fL Neut % (Auto) % Lymph % (Auto) % [place] % (Auto) % Eos % (Auto) % Baso % (Auto) % Neut # (Auto) (1.8-7.7) 10^3/u L Lymph # (Auto) (0.8-4.8) 10^3/u L [place] # (Auto) (0.2-0.9) 10^3/u L Eos # (Auto) (0.0-0.8) 10^3/u L Baso # (Auto) (0.0-0.1) 10^3/u L Nucleated RBC % (a uto) % Nucleated RBCs # /100WBC Sodium (136-145) mmol/L Potassium (3.5-5.1) mmol/L Chloride (98-107) mmol/L Carbon Dioxide (22-29) mmol/L Anion Gap (5-19) BUN (6-20) mg/dL Creatinine (0.5-0.9) mg/dL GFR Calculation (90-130) mL/min Glucose (65-115) mg/dL Calculated Osmolal ity (285-295) mOsm/k g Calcium (8.5-10.5) mg/dL Total Bilirubin (0.15-1.2) mg/dL AST (0-32) U/L ALT (0-33) U/L Alkaline Phosphata se (35-105) IU/L Total Protein (6.6-8.7) g/dL Albumin (3.5-5.2) g/dL Globulin (1.3-4.6) g/dL Lipase (13-60) U/L HCG, Qual Negative (Negative) Urine Color Dark yellow (Yellow) Urine Appearance Clear (CLEAR) Urine pH 6.5 (5-7) Ur Specific Gravit y 1.010 (1.005-1.030) Urine Protein 1+ H (Negative) Urine Glucose (UA) Norm (Normal) Urine Ketones 2+ H (Negative) Urine Blood Neg (Negative) Urine Nitrate Negative (Negative) Urine Bilirubin 1+ H (Negative) Urine Urobilinogen 1 H (Negative) mg/dL Ur Leukocyte Vera ase Negative (Negative) Urine RBC (0-2) /hpf Urine WBC (0-5) /hpf Ur Squamous Epith Cells (0-5) /hpf Amorphous Sediment Urine Bacteria (NONE) /hpf Urine Mucus /hpf Urine Opiates Scre en Negative (Negative) ng/mL Ur Barbiturates Sc reen Negative (Negative) ng/mL Ur Phencyclidine S crn Negative (Negative) ng/mL Ur Amphetamines Sc reen Negative (Negative) ng/mL U Benzodiazepines Scrn Negative (Negative) ng/mL Urine Cocaine Scre en Negative (Negative) ng/mL U Marijuana (THC) Screen Positive H (Negative) ng/mL Discharge Plan Discharge Prescriptions: No Action sumatriptan succinate 6 mg/0.5 mL syringe 6 mg SUBCUT ONCE PRN (Reason: migraine headache) Qty: 6 RF: 0 duloxetine 60 mg capsule,delayed release(DR/EC) 60 mg PO DAILY Qty: 30 RF: 1 mirtazapine 15 mg tablet 15 mg PO BEDTIME Qty: 30 RF: 1 pantoprazole [Protonix] 40 mg tablet,delayed release (DR/EC) 40 mg PO QAM Qty: 30 RF: 3 sumatriptan succinate [Imitrex] 100 mg tablet See Rx Instructions .ROUTE .COMPLEX Qty: 9 RF: 0 propranolol 10 mg tablet 10 mg PO BID RF: 0 sumatriptan 20 mg/actuation spray,non-aerosol 20 mg intranasal Q2H PRN (Reason: migraine headache) Qty: 6 RF: 0 Coding Level of Care Code ED Forestry Supervisor for Chg Fwd Exam Comprehensive
--- NOTE | 2020-12-12 13:35 | PC.NURSE ---
patient with no further vomiting at this time
[2020-12-12 13:37] LABS: HCG Qualitative Urine. Negative (Negative)
[2020-12-12 13:48] LABS: Urine Appearance Cloudy (CLEAR); Urine Color Brown (Yellow); pH Urine 5 (5-7)
[2020-12-12 13:49] LABS: Add Urine Microscopic? YES; Amphetamines Screen Urine Negative (Negative); Barbiturates Screen Urine Negative (Negative); Benzodiazepines Screen Urine Negative (Negative); Bilirubin Urine 1+ (Negative); Blood Urine Neg (Negative); Cocaine Screen Urine Negative (Negative); Glucose Urine UA Norm (Normal); Ketones Urine 3+ (Negative); Leukocyte Esterase Urine Negative (Negative); Nitrate Urine Negative (Negative); Opiate Screen Urine Negative (Negative); PCP Screen Urine Negative (Negative); Protein Urine 1+ (Negative); Specific Gravity, Urine 1.025 (1.005-1.030); THC Screen Urine Positive (Negative); Urobilinogen Urine 4 mg/dL (Negative)
[2020-12-12] MEDS: sodium chloride 0.9% 1,000 ML 999 ML IV (13:49)
[2020-12-12 13:50] LABS: Bacteria Urine 3+ /hpf; Mucus Urine 2+ /hpf
[2020-12-12 13:51] LABS: Squamous Epithelial Cell Urine 0-4 /hpf (0-5); WBC Urine 0-4 /hpf (0-5)
[2020-12-12 13:52] LABS: Add Urine Culture? No
[2020-12-12] MEDS: iohexol 300 mg/mL 100 mL Btl IV (14:09)
[2020-12-12 15:29] LABS: Charge for UA Resulting for Rev
[2020-12-12 15:51] LABS: Add Urine Microscopic? YES; Bilirubin Urine 1+ (Negative); Blood Urine Neg (Negative); Glucose Urine UA Norm (Normal); Ketones Urine 2+ (Negative); Leukocyte Esterase Urine Negative (Negative); Nitrate Urine Negative (Negative); Protein Urine 1+ (Negative); Urine Appearance Clear (CLEAR); Urine Color Dark Yellow (Yellow); Urobilinogen Urine 1 mg/dL (Negative); pH Urine 6.5 (5-7)
== END 2020-12-12 17:35 | disposition home or self-care (01) ==
PROVIDERS: Emergency Provider Registered Nurse; PCP Nurse Practitioner Family
DX: R51.9 Headache, unspecified (principal); F17.290 Nicotine dependence, other tobacco product, uncomplicated
CPT/HCPCS: 74177; 80053; 80306; 81001; 81003; 81025; 83690; 85025; 96361; 96372; 96374; 96375; 99284; J1100; J2060; J2550; J7030; Q9967

== ENCOUNTER 2021-01-02 08:59 | Emergency (ER) | payer SELFPAY ==
[2021-01-02 09:23] VITALS: BP 143/92; PULSE 93; RESP 16; TEMP 36.9; O2SAT 99; BMI 19.5
[2021-01-02 09:27] VITALS: BP 143/92; PULSE 126; RESP 22; O2SAT 99
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
[2021-01-02] MEDS: ondansetron 2 mg/ML SDV 2 mL 4 MG IVP (09:57)
[2021-01-02] MEDS: valproic acid inj 500 MG in sodium chloride 0.9% 50 ML 55 MG IV (09:57)
[2021-01-02] MEDS: LORazepam 2 mg/mL INJ 1 mL 1 MG IVP (09:57)
[2021-01-02] MEDS: sodium chloride 0.9% 1,000 ML 999 ML IV (09:58)
[2021-01-02 10:07] LABS: Basophils % 0.4 %; Eosinophils % 0.1 %; Hematocrit 41.9 % (37.0-47.0); Hemoglobin 14.2 g/dL (11.5-15.3); Lymphocytes % 10.8 %; Mean Corpuscular HGB Conc 33.9 g/dL (30.0-36.0); Mean Corpuscular Hemoglobin 29.1 pg (28.0-34.0); Mean Corpuscular Volume 85.9 fL (81-99); Mean Platelet Volume 10.1 fL (7.4-10.4); Monocytes # 0.5 10^3/uL (0.2-0.9); Monocytes % 4.8 %; Neutrophils # 7.87 10^3/uL (1.8-7.7); Neutrophils % 83.7 %; Nucleated Red Blood Cells % 0 %; Platelet Count 293 10^3/cmm (130-400); Red Blood Count 4.88 10^6/uL (4.1-5.3); Red Cell Distribution Width 13.2 % (12.1-15.1); White Blood Count 9.4 10^3/uL (4.0-10.0)
[2021-01-02 10:28] LABS: Alanine Aminotransferase 12 U/L (0-33); Albumin Level 4.4 g/dL (3.5-5.2); Alkaline Phosphatase 69 IU/L (35-105); Anion Gap 16.5 (5-19); Aspartate Amino Transferase 15 U/L (0-32); Blood Urea Nitrogen 7 mg/dL (6-20); Calcium 8.9 mg/dL (8.5-10.5); Carbon Dioxide 22 mmol/L (22-29); Chloride 101 mmol/L (98-107); Globulin 2.3 g/dL (1.3-4.6); Glomerular Filtration Rate 143.9 mL/min (90-130); Glucose 116 mg/dL (65-115); Lipase 14 U/L (13-60); Osmolality Calculated 281 mOsm/kg (285-295); Potassium 3.5 mmol/L (3.5-5.1); Sodium 136 mmol/L (136-145); Total Bilirubin 0.4 mg/dL (0.15-1.2); Total Protein 6.7 g/dL (6.6-8.7)
[2021-01-02 10:30] LABS: HCG, Serum Qual Negative (Negative)
[2021-01-02 11:19] LABS: Estmated Average Glucose 100; Hemoglobin A1C 5.1 % (4.0-6.0)
[2021-01-02 11:20] VITALS: BP 97/53; PULSE 71; RESP 14; O2SAT 96
== END 2021-01-02 11:22 | disposition home or self-care (01) ==
PROVIDERS: Emergency Provider Physician Assistant; PCP Nurse Practitioner Family
DX: R11.15 Cyclical vomiting syndrome unrelated to migraine (principal); G43.001 Migraine without aura, not intractable, with status migrainosus; F17.290 Nicotine dependence, other tobacco product, uncomplicated
CPT/HCPCS: 80053; 83036; 83690; 84703; 85025; 96365; 96375; 99284; J2060; J2405; J7030

== ENCOUNTER 2022-02-06 16:09 | Outpatient (CLI) | payer OTHER, SELFPAY ==
--- NOTE | 2022-02-06 16:26 | CTR_ITS ---
PROCEDURE INFORMATION: Exam: CT Head Without Contrast Exam date and time: 02/06/2022 4:36 PM Age: 31 years old Clinical indication: Pain; Headache; Migraine; Aura effect not specified; Additional info: Migraines TECHNIQUE: Imaging protocol: Computed tomography of the head without contrast. Radiation optimization: All CT scans at this facility use at least one of these dose optimization techniques: automated exposure control; mA and/or kV adjustment per patient size (includes targeted exams where dose is matched to clinical indication); or iterative reconstruction. COMPARISON: No relevant prior studies available. RADIATION DOSE METRICS: Total DLP (mGy-cm): 923.48 FINDINGS: Brain: Normal. No hemorrhage. Unremarkable white matter. No mass effect. Cerebral ventricles: No ventriculomegaly. Paranasal sinuses: Visualized sinuses are unremarkable. No fluid levels. Mastoid air cells: Visualized mastoid air cells are well aerated. Bones/joints: Unremarkable. No acute fracture. Soft tissues: Unremarkable. CT/CT head wo con* [id number] IMPRESSION: No acute intracranial abnormality.
== END 2022-02-06 16:10 | disposition home or self-care (01) ==
LOC: RAD 16:09
PROVIDERS: PCP Nurse Practitioner Family; Visit Provider Nurse Practitioner
DX: G43.909 Migraine, unspecified, not intractable, without status migrainosus (principal)
CPT/HCPCS: 70450

== ENCOUNTER → 2022-03-25 09:42 | Outpatient (BNVA) | payer OTHER, SELFPAY | PROVIDERS: PCP Nurse Practitioner; Visit Provider Specialist | DX: Z09 Encounter for follow-up examination after completed treatment for conditions other than malignant neoplasm (principal); Z87.898 Personal history of other specified conditions | CPT/HCPCS: 99214; 99215 ==

== ENCOUNTER → 2022-06-21 11:32 | Outpatient (BNVA) | payer OTHER, SELFPAY | PROVIDERS: PCP Nurse Practitioner; Visit Provider Nurse Practitioner Family | DX: J02.9 Acute pharyngitis, unspecified (principal) | CPT/HCPCS: 87071; 87880 ==

== ENCOUNTER 2023-08-07 07:01 | Outpatient (CLI) | payer OTHER, SELFPAY ==
--- NOTE | 2023-08-07 07:17 | MR_ITS ---
WS: [id number] EXAMINATION: MR foot LT wo con* [id number] ORDER DATE: 08/07/2023 7:22 AM COMPARISON: None. HISTORY: L FOOT PAIN CONTRAST: None. TECHNIQUE: Sagittal T1, sagittal STIR, coronal PD, coronal T2, axial T1, axial T2, and axial PD imagi ng with fat saturation technique. FINDINGS: Tiny T2 hyperintense cystic lesion along the plantar foot at the second MTP joint abutting the flexor tendon likely represents a tiny ganglion cyst measuring approximately 3.7 x 2.2 mm. No other abnorma lities involving the second phalanges or second metatarsal. Normal normal anatomic alignment. No acute fractures. First metatarsal head is normal in appearance. Normal second through fifth metatarsals. Second phalanges are normal in appearance. No evidence of b one marrow edema. No evidence of osteomyelitis. No drainable fluid collections or abscess. Normal navicular. Normal cuneiforms. Cuboid appears normal in appearance. Base of the fifth metatarsa l appears normal. IMPRESSION: 1. Tiny T2 hyperintense cystic lesion along the plantar foot at the second MTP joint abutting the fl exor tendon likely represents a tiny ganglion cyst measuring approximately 3.7 x 2.2 mm. 2. No other suspicious findings.
== END 2023-08-07 07:02 | disposition home or self-care (01) ==
LOC: RAD 07:02
PROVIDERS: PCP Nurse Practitioner; Visit Provider Nurse Practitioner
DX: M79.672 Pain in left foot (principal); M25.872 Other specified joint disorders, left ankle and foot
CPT/HCPCS: 73718

== ENCOUNTER → 2024-01-07 08:01 | Outpatient (BNVA) | payer OTHER, SELFPAY | PROVIDERS: PCP Nurse Practitioner; Visit Provider Nurse Practitioner Family | DX: L74.510 Primary focal hyperhidrosis, axilla (principal); D22.61 Melanocytic nevi of right upper limb, including shoulder | CPT/HCPCS: 99204 ==

== ENCOUNTER → 2024-03-10 09:30 | Outpatient (BNVA) | payer OTHER, SELFPAY | PROVIDERS: PCP Nurse Practitioner; Visit Provider Nurse Practitioner Family | DX: L74.510 Primary focal hyperhidrosis, axilla (principal); L70.0 Acne vulgaris | CPT/HCPCS: 99214 ==

== ENCOUNTER 2024-03-15 16:58 | Outpatient (CLI) | payer OTHER, SELFPAY ==
[2024-03-15 17:19] LABS: Basophils % 0.6 %; Eosinophils % 0.6 %; Lymphocytes # 2.1 10^3/uL (0.8-4.8); Lymphocytes % 28.7 %; Mean Corpuscular HGB Conc 32.9 g/dL (30-55); Mean Corpuscular Hemoglobin 30.6 pg (27-33); Mean Corpuscular Volume 93.1 fl (85-98); Mean Platelet Volume 10.2 fL (7.4-10.4); Monocytes # 0.4 10^3/uL (0.2-0.9); Monocytes % 6.2 %; Neutrophils # 4.56 10^3/uL (1.8-7.7); Neutrophils % 63.8 %; Nucleated Red Blood Cells % 0 %; Platelet Count 232 10^3/cmm (157-399); Red Blood Count 4.51 10^6/uL (3.85-5.65); Red Cell Distribution Width 11.9 % (12.1-15.1); White Blood Count 7.14 10^3/uL (3.29-11.43)
[2024-03-15 17:44] LABS: Alanine Aminotransferase 21 U/L (0-33); Albumin Level 4.7 g/dL (3.5-5.2); Alkaline Phosphatase 63 U/L (35-105); Anion Gap 18.1 (5-19); Aspartate Amino Transferase 16 U/L (0-32); Blood Urea Nitrogen 15 mg/dL (6-20); Calcium 8.9 mg/dL (8.5-10.5); Carbon Dioxide 22 mmol/L (22-29); Chloride 101 mmol/L (98-107); Globulin 2.6 g/dL (1.3-4.6); Glomerular Filtration Rate 114.4 mL/min (90-130); Glucose 97 mg/dL (65-115); Osmolality Calculated 285 mOsm/kg (285-295); Potassium 4.1 mmol/L (3.5-5.1); Sodium 137 mmol/L (136-145); Thyroid Stimulating Hormone 3.29 uIU/mL (0.27-4.20); Total Bilirubin 0.3 mg/dL (0.15-1.2); Total Protein 7.3 g/dL (6.6-8.7)
[2024-03-15 21:04] LABS: Free T4 Free Thyroxine 1.12 ng/dL (0.82-1.77)
== END 2024-03-15 16:59 | disposition home or self-care (01) ==
LOC: LAB 16:59
PROVIDERS: PCP Nurse Practitioner; Visit Provider Nurse Practitioner Family
DX: L74.510 Primary focal hyperhidrosis, axilla (principal)
CPT/HCPCS: 36415; 80053; 84439; 84443; 85025